=== PATIENT | male | born 1945 ===

== ENCOUNTER 2016-11-22 12:29 | Emergency (ER) | payer OTHER ==
[2016-11-22 12:33] VITALS: BP 158/85; PULSE 105; RESP 20; TEMP 98.3; O2SAT 98
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
--- NOTE | 2016-11-22 14:01 | RAD ---
HISTORY: r/o pneumothorax COMPARISON: No prior. TECHNIQUE: Chest PA and lateral FINDINGS: LUNGS: Suspect minor left basilar atelectasis and or scarring PLEURA: No significant pleural effusion identified. No pneumothorax apparent. CARDIOVASCULAR: Heart size normal. Partially calcified atherosclerotic plaque seen along the transverse portion of the thoracic aorta. OSSEOUS STRUCTURES: Minor multilevel degenerative spondylosis of the thoracic spine VISUALIZED UPPER ABDOMEN: Normal. OTHER FINDINGS: None. IMPRESSION: Suspect minor left basilar atelectasis or scarring
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
--- NOTE | 2016-11-22 15:15 | RAD ---
PROCEDURE: Right Hip Radiographs. HISTORY: hip pain COMPARISON: None. FINDINGS: BONES: No evidence of acute displaced fracture nor dislocation. The osseous structures appear intact. Both femoral heads appropriately located within the respective acetabula. JOINTS: Arthritic changes both hip joints. SOFT TISSUES: Normal. OTHER FINDINGS: Note made of mild degenerative spondylosis of the visualized lumbosacral spine IMPRESSION: No evidence of acute displaced fracture nor dislocation. Arthritic changes both hips
== END 2016-11-22 14:25 | disposition home or self-care (01) ==
LOC: H.ER 12:29
DX: S70.00XA Contusion of unspecified hip, initial encounter (principal); S20.229A Contusion of unspecified back wall of thorax, initial encounter; V03.10XA Pedestrian on foot injured in collision with car, pick-up truck or van in traffic accident, initial encounter; Y92.410 Unspecified street and highway as the place of occurrence of the external cause

== ENCOUNTER 2018-10-09 20:49 | Inpatient (IN) | payer OTHER ==
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
[2018-10-09 23:36] LABS: BASO % 0.5 % (0.0-2.0); EOS # 0.4 K/uL (0.0-0.7); HEMOGLOBIN 12.8 g/dL (12.0-18.0); LYMPH % 12.6 % (20.0-40.0); MEAN CELL VOLUME 104.1 fl (80.0-94.0); MEAN CORPUSCULAR HEMOGLOBIN 35.3 pg (27.0-31.0); MEAN CORPUSCULAR HGB CONC 33.9 g/dL (33.0-37.0); MEAN PLATELET VOLUME 8.7 fl (7.2-11.7); MONO # 0.4 K/uL (0.0-0.8); MONO % 4.9 % (0.0-10.0); NEUT # 6.4 K/uL (1.8-7.0); RBC 3.63 Mil/uL (4.40-5.90); RED CELL DISTRIBUTION WIDTH 13.1 % (11.5-14.5); WHITE BLOOD COUNT 8.3 K/uL (4.8-10.8)
[2018-10-09 23:40] LABS: PROTHROMBIN TIME 11.9 Seconds (9.8-13.1)
[2018-10-09 23:43] LABS: PARTIAL THROMBOPLASTIN TIME 27.4 Seconds (25.6-37.1)
[2018-10-09 23:45] LABS: ALB/GLOB RATIO 1.4 (1.0-2.1); ALBUMIN 4.3 g/dL (3.5-5.0); ALT/SGPT 28 U/L (21-72); AST/SGOT 22 U/L (17-59); BLOOD UREA NITROGEN 16 mg/dl (9-20); GFR NON-AFRICAN AMERICAN > 60
[2018-10-10] MEDS ORDERED: Iodixanol 320 MG/ML 100 ML BOTTLE IV ONE (00:08)
[2018-10-10] MEDS ORDERED: Sodium Chloride 0.9% 50 ML IV ONE (00:09)
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
[2018-10-10] MEDS: Sodium Chloride 0.9% 1,000 ML IV SCH ×3 (01:51→20:51)
[2018-10-10 02:36] LABS: SQUAMOUS EPITHIAL < 1 /hpf (0-5); URINE BILIRUBIN NEGATIVE (NEGATIVE); URINE BLOOD NEGATIVE (NEGATIVE); URINE CLARITY CLEAR (Clear); URINE COLOR YELLOW (YELLOW); URINE GLUCOSE (UA) NEG (NEGATIVE); URINE LEUKOCYTE ESTERASE NEG Leu/uL (Negative); URINE PROTEIN NEGATIVE (NEGATIVE)
--- NOTE | 2018-10-10 09:26 | CARD ---
APPROVED REPORT Date of service: 10/10/2018 EKG Measurement Heart [id number] <Conclusion> Normal sinus rhythm Normal ECG
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
[2018-10-10] MEDS ORDERED: Bupivacaine 0.5% Inj(30mL) ONE (11:01)
[2018-10-10] MEDS ORDERED: Midazolam 2 MG/2 ML VIAL ONE (11:04)
[2018-10-10] MEDS ORDERED: Succinylcholine Chloride 20 mg/ml Syr (5 ml) IV ONE (11:04)
[2018-10-10] MEDS ORDERED: Etomidate 20 mg/10ml Inj IV ONE (11:04)
[2018-10-10 11:06] LABS: HEMOGLOBIN 11.3 g/dL (12.0-18.0); MEAN CELL VOLUME 103.8 fl (80.0-94.0); MEAN CORPUSCULAR HEMOGLOBIN 35.4 pg (27.0-31.0); MEAN CORPUSCULAR HGB CONC 34.1 g/dL (33.0-37.0); RBC 3.2 Mil/uL (4.40-5.90); RED CELL DISTRIBUTION WIDTH 12.7 % (11.5-14.5); WHITE BLOOD COUNT 4.9 K/uL (4.8-10.8)
[2018-10-10] MEDS ORDERED: Iohexol 240 200 ML ONE (11:08)
[2018-10-10] MEDS ORDERED: Bupivacaine 0.5% 50 ML IJ ONE (11:20)
[2018-10-10] MEDS ORDERED: Esmolol 100 mg/10ml Inj IV ONE (11:22)
[2018-10-10] MEDS ORDERED: Lactated Ringer's 1,000 ML IV ONE (11:40)
[2018-10-10] MEDS ORDERED: HYDROmorphone 0.5 mg/0.5 ml ISec IVP PRN ×2 (11:41→12:05)
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
--- NOTE | 2018-10-10 13:11 | RAD ---
Date of service: 10/10/2018 PROCEDURE: CHEST RADIOGRAPH, 1 VIEW HISTORY: pre-op COMPARISON: 11/22/2016 FINDINGS: LUNGS: No interval consolidation. Possible bronchiectasis each upper lobe no change in appearance suggested. PLEURA: No pneumothorax or pleural fluid seen. CARDIOVASCULAR: There is presence of aortic atherosclerotic calcification on x-ray. Minimal [id number] No significant appearing pulmonary venous congestion. OSSEOUS STRUCTURES: Thoracic spondylosis. Bilateral shoulder arthrosis. Focal sclerotic lesion over left humeral head similar-appearing probable benign bone island. VISUALIZED UPPER ABDOMEN: Normal. OTHER FINDINGS: None. IMPRESSION: No acute cardiopulmonary pathology noted. No interval pathology noted.
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
--- NOTE | 2018-10-10 14:17 | RAD ---
Date of service: 10/10/2018 PROCEDURE: Intraoperative Fluoroscopy. HISTORY: RIGHT TIB/FIB FINDINGS: Fluoroscopic assistance was provided. Total fluoroscopic time (continuous mode) utilized during the procedure 6.1 seconds. Total exam DLP: 0.32 (mGy). Please refer to the operative report from DREW Patricio.
[2018-10-10] MEDS: oxyCODONE 5 mg Immediate Release Tab PO PRN ×2 (15:38→22:15)
[2018-10-11] MEDS: Sodium Chloride 0.9% 1,000 ML IV SCH ×4 (00:30→16:37)
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
[2018-10-11 07:43] LABS: HEMOGLOBIN 11.1 g/dL (12.0-18.0); MEAN CELL VOLUME 104.3 fl (80.0-94.0); MEAN CORPUSCULAR HEMOGLOBIN 35.4 pg (27.0-31.0); RBC 3.12 Mil/uL (4.40-5.90); RED CELL DISTRIBUTION WIDTH 12.8 % (11.5-14.5); WHITE BLOOD COUNT 5.5 K/uL (4.8-10.8)
[2018-10-11 08:05] LABS: BLOOD UREA NITROGEN 17 mg/dl (9-20); CALCIUM 8.2 mg/dL (8.4-10.2); GFR NON-AFRICAN AMERICAN > 60
[2018-10-11] MEDS ORDERED: ceFAZolin 1 GM in Sodium Chloride 0.9% 100 ML IVPB SCH (09:15)
[2018-10-11] MEDS: Ergocalciferol 50,000 Intl Units Cap PO SCH (11:56)
--- NOTE | 2018-10-11 13:08 | CP.PCM.PN ---
Subjective - Date & Time of Evaluation Date of Evaluation: 10/11/18 Time of Evaluation: 13:07 - Subjective Subjective: Patient complaining of knee pain, but says it is much improved after knee drainage yesterday. Denies numbness/tingling. Denies CP/SOB/dzzinss. Objective - Vital Signs/Intake and Output Vital Signs (last 24 hours): Temp Pulse Resp BP Pulse Ox 99.3 F 72 20 155/74 H 95 10/11/18 07:48 10/11/18 11:16 10/11/18 07:48 10/11/18 11:16 10/11/18 11:16 - Medications Medications: Current Medications Acetaminophen (Tylenol 325mg Tab) 650 mg PO Q6 PRN PRN Reason: Pain, Mild (1-3) Acetaminophen (Tylenol 325mg Tab) 650 mg PO Q6 PRN PRN Reason: Fever >100.4 F Last Admin: 10/10/18 18:29 Dose: 650 mg Calcium/Vitamin D (Oyster Shell Calcium/Vitamin D 500 Mg-200 Iu) 1 tab PO DAILY [facility] Docusate Sodium (Colace) 100 mg PO BID [facility] Last Admin: 10/11/18 08:29 Dose: 100 mg Enoxaparin Sodium (Lovenox) 40 mg SC DAILY [facility]; Protocol Ergocalciferol (Drisdol 50,000 Intl Units Cap) 1 cap PO Q7D [facility] Last Admin: 10/11/18 11:56 Dose: 1 cap Hydromorphone HCl (Dilaudid) 0.5 mg IVP Q4H PRN PRN Reason: Pain, severe (8-10) Sodium Chloride (Sodium Chloride 0.9%) 1,000 mls @ 125 mls/hr IV .Q8H [facility] Last Admin: 10/11/18 08:30 Dose: 125 mls/hr Cefazolin Sodium 1 gm/ Sodium (Chloride) 100 mls @ 100 mls/hr IVPB Q8 [facility]; Protocol Stop: 10/12/18 01:59 Last Admin: 10/11/18 11:52 Dose: 100 mls/hr Ketorolac Tromethamine (Toradol) 15 mg IVP Q6 PRN PRN Reason: Pain, severe (8-10) Last Admin: 10/11/18 05:59 Dose: 15 mg Oxycodone HCl (Oxycodone Immediate Release Tab) 5 mg PO Q4H PRN PRN Reason: Pain, moderate (4-7) Last Admin: 10/10/18 22:15 Dose: 5 mg - Labs Labs: 10/11/18 06:28 10/11/18 06:28 PT 11.9 Seconds (9.8-13.1) 10/09/18 23:33 INR 1.0 10/09/18 23:33 APTT 27.4 Seconds (25.6-37.1) 10/09/18 23:33 - Extremities Exam Additional comments: RLE: +ROM ankle/toes, limited motion due to pain but improving significantly. +DP/PT pulses, ant/lat compartments softer, calves soft NT neg homans, sensation intact Assessment and Plan (1) Closed fracture of right tibial plateau Assessment & Plan: POD#1 s/p closed reduction and aspiration of hemarthrosis right knee knee immob NWB PT/OT Will need ORIF when swelling improves Need designated CT of knee (CT angio not sufficient) plan for OR when swelling improves per DR. Mcguire, agrees with above Status: Acute (2) Closed fracture of fibula, proximal, right Status: Acute (3) Vitamin D deficiency Assessment & Plan: supp Status: Acute
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
[2018-10-11] MEDS: Calcium-Vit D 500 mg-200 Units Tab UD PO SCH (16:36)
--- NOTE | 2018-10-11 16:45 | CT ---
Date of service: 10/11/2018 PROCEDURE: CT right knee HISTORY: Right knee: right tibial plateau fracture COMPARISON: Not available TECHNIQUE: Computed tomography of the right knee was performed without intravenous contrast administration. 2.5 mm contiguous axial sections were acquired through the right knee. Sagittal and coronal images were reformatted from the axial scan. Total exam DLP: 393.54 mGy-cm. This CT exam was performed using 1 or more of the following dose reduction techniques: Automated exposure control, adjustment of the mA and/or kV according to patient size, and/or use of iterative reconstruction technique. FINDINGS: Markedly comminuted displaced pressure of the proximal right tibia. There is a transverse nondisplaced component. There is a mildly displaced vertical fracture through the lateral tibial condyle. The fractures extend to the articular surface. There are no clear intra-articular osseous fragments. There is a comminuted minimally displaced fracture of the proximal fibula. There is a small lipohemarthrosis.. There is trace gas noted along the medial aspect of the medial patellar articular facet. Uncertain significance. IMPRESSION: Comminuted displaced proximal tibial fracture, intra-articular. Comminuted minimally displaced proximal fibular fracture.
--- NOTE | 2018-10-12 05:51 | CP.PCM.PN ---
Subjective - Date & Time of Evaluation Date of Evaluation: 10/12/18 Time of Evaluation: 06:00 - Subjective Subjective: Patient states pain is controlled. Denies CP/SOB/dizziness. No new complaints. Objective - Vital Signs/Intake and Output Vital Signs (last 24 hours): Temp Pulse Resp BP Pulse Ox 98.9 F 79 18 155/79 H 96 10/12/18 04:12 10/12/18 04:12 10/12/18 04:12 10/12/18 04:12 10/12/18 04:12 - Medications Medications: Current Medications Acetaminophen (Tylenol 325mg Tab) 650 mg PO Q6 PRN PRN Reason: Pain, Mild (1-3) Acetaminophen (Tylenol 325mg Tab) 650 mg PO Q6 PRN PRN Reason: Fever >100.4 F Last Admin: 10/10/18 18:29 Dose: 650 mg Calcium/Vitamin D (Oyster Shell Calcium/Vitamin D 500 Mg-200 Iu) 1 tab PO DAILY [facility] Last Admin: 10/11/18 16:36 Dose: 1 tab Docusate Sodium (Colace) 100 mg PO BID [facility] Last Admin: 10/11/18 16:36 Dose: 100 mg Enoxaparin Sodium (Lovenox) 40 mg SC DAILY [facility]; Protocol Ergocalciferol (Drisdol 50,000 Intl Units Cap) 1 cap PO Q7D [facility] Last Admin: 10/11/18 11:56 Dose: 1 cap Hydromorphone HCl (Dilaudid) 0.5 mg IVP Q4H PRN PRN Reason: Pain, severe (8-10) Ketorolac Tromethamine (Toradol) 15 mg IVP Q6 PRN PRN Reason: Pain, severe (8-10) Last Admin: 10/11/18 20:34 Dose: 15 mg Oxycodone HCl (Oxycodone Immediate Release Tab) 5 mg PO Q4H PRN PRN Reason: Pain, moderate (4-7) Last Admin: 10/10/18 22:15 Dose: 5 mg - Labs Labs: 10/11/18 06:28 10/11/18 06:28 PT 11.9 Seconds (9.8-13.1) 10/09/18 23:33 INR 1.0 10/09/18 23:33 APTT 27.4 Seconds (25.6-37.1) 10/09/18 23:33 - Extremities Exam Additional comments: RLE: continued significant swelling to knee/right lower leg. No significant improvement at this time. +DP/PT pulses, calves soft NT neg homans but lower extremity swelling +ROM ankle/toes, improving sensation intact, compartments ant/lat still swollen but not tense Assessment and Plan (1) Closed fracture of right tibial plateau Assessment & Plan: s/p aspiration/CR plan for ORIF when swelling subsides, still too much swelling at this time to proceed with ORIF per Dr. Mcguire CT scan appreciated MRI right knee to evaluation for internal derangement of knee venous dopplers to r/o DVT will plan for OR Monday and reevaluate swelling over the weekend ice elevation NWB knee immob PT/OT VTE proph d/w Dr. Tillman, agrees with above Status: Acute (2) Closed fracture of fibula, proximal, right Status: Acute (3) Vitamin D deficiency Status: Acute Radiology Interpretation - Radiology Interpretation #3 Interpretation: atient Name / ID : MARIIA MONDRAGON / [id number] Exam Date : 10/11/2018 15:44:24 ( Approved ) Study Comment : Sex / Age : M / 73Y Creator : Moose Hanson MD Dictator : Moose Hanson MD Arc Welder Apprentice : Cylinder Inspector : Moose Hanson MD Approver2 : Report Date : 10/11/2018 16:39:58 My Comment : Date of service: 10/11/2018 PROCEDURE: CT right knee HISTORY: Right knee: right tibial plateau fracture COMPARISON: Not available TECHNIQUE: Computed tomography of the right knee was performed without intravenous contrast administration. 2.5 mm contiguous axial sections were acquired through the right knee. Sagittal and coronal images were reformatted from the axial scan. Total exam DLP: 393.54 mGy-cm. This CT exam was performed using 1 or more of the following dose reduction techniques: Automated exposure control, adjustment of the mA and/or kV according to patient size, and/or use of iterative reconstruction technique. FINDINGS: Markedly comminuted displaced pressure of the proximal right tibia. There is a transverse nondisplaced component. There is a mildly displaced vertical fracture through the lateral tibial condyle. The fractures extend to the articular surface. There are no clear intra-articular osseous fragments. There is a comminuted minimally displaced fracture of the proximal fibula. There is a small lipohemarthrosis.. There is trace gas noted along the medial aspect of the medial patellar articular facet. Uncertain significance.
[2018-10-12 06:17] LABS: BASO % 0.6 % (0.0-2.0); EOS # 0.8 K/uL (0.0-0.7); EOS % 14.9 % (0.0-4.0); HEMOGLOBIN 11.2 g/dL (12.0-18.0); LYMPH # 1.7 K/uL (1.0-4.3); LYMPH % 31.4 % (20.0-40.0); MEAN CORPUSCULAR HEMOGLOBIN 35.4 pg (27.0-31.0); MEAN PLATELET VOLUME 9.2 fl (7.2-11.7); MONO # 0.4 K/uL (0.0-0.8); MONO % 6.6 % (0.0-10.0); NEUT # 2.6 K/uL (1.8-7.0); NEUT % 46.5 % (50.0-75.0); NRBC % 0.1 % (0.0-0.0); RBC 3.17 Mil/uL (4.40-5.90); RED CELL DISTRIBUTION WIDTH 12.8 % (11.5-14.5); WHITE BLOOD COUNT 5.5 K/uL (4.8-10.8)
[2018-10-12 06:24] LABS: BLOOD UREA NITROGEN 17 mg/dl (9-20); CALCIUM 8.7 mg/dL (8.4-10.2); GFR NON-AFRICAN AMERICAN > 60
[2018-10-12] MEDS ORDERED: Enoxaparin 40 mg Syringe SC SCH (09:00)
[2018-10-12] MEDS: Calcium-Vit D 500 mg-200 Units Tab UD PO SCH (09:08)
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
[2018-10-12] MEDS: oxyCODONE 5 mg Immediate Release Tab PO PRN (16:00)
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
[2018-10-13 07:56] LABS: BASO % 0.9 % (0.0-2.0); EOS % 17.4 % (0.0-4.0); HEMOGLOBIN 11.4 g/dL (12.0-18.0); LYMPH # 1.5 K/uL (1.0-4.3); MEAN CELL VOLUME 103.8 fl (80.0-94.0); MEAN CORPUSCULAR HEMOGLOBIN 35.4 pg (27.0-31.0); MEAN CORPUSCULAR HGB CONC 34.1 g/dL (33.0-37.0); MEAN PLATELET VOLUME 9.4 fl (7.2-11.7); MONO # 0.4 K/uL (0.0-0.8); MONO % 7.4 % (0.0-10.0); NEUT # 2.5 K/uL (1.8-7.0); NEUT % 46.3 % (50.0-75.0); NRBC % 0.1 % (0.0-0.0); RBC 3.22 Mil/uL (4.40-5.90); RED CELL DISTRIBUTION WIDTH 12.7 % (11.5-14.5); WHITE BLOOD COUNT 5.5 K/uL (4.8-10.8)
[2018-10-13 08:14] LABS: BLOOD UREA NITROGEN 20 mg/dl (9-20); CALCIUM 8.7 mg/dL (8.4-10.2); GFR NON-AFRICAN AMERICAN > 60
[2018-10-13] MEDS ORDERED: Enoxaparin 40 mg Syringe SC ONE (08:45)
[2018-10-13] MEDS: Calcium-Vit D 500 mg-200 Units Tab UD PO SCH (12:31)
[2018-10-13] MEDS: oxyCODONE 5 mg Immediate Release Tab PO PRN ×3 (12:31→21:58)
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
--- NOTE | 2018-10-13 17:44 | US ---
Date of service: 10/12/2018 PROCEDURE: Bilateral lower extremity venous duplex Doppler. HISTORY: RLE sweling, r/o DVT COMPARISON: None available. TECHNIQUE: Bilateral common femoral, superficial femoral, popliteal and posterior tibial veins were evaluated. Flow was assessed with color Doppler, compressibility, assessment of phasic flow and augmentation response. FINDINGS: COMMON FEMORAL VEIN: Right CFV: Unremarkable. Left CFV: Unremarkable. SUPERFICIAL FEMORAL VEIN: Right SFV: Unremarkable. Left SFV: Unremarkable. POPLITEAL VEIN: Right Popliteal: Unremarkable. Left Popliteal: Unremarkable. POSTERIOR TIBIAL VEIN: Right PTV: Unremarkable. Left PTV: Unremarkable. OTHER FINDINGS: Popliteal cyst is seen at the right popliteal fossa 4.6 x 0.8 x 2.9 cm. IMPRESSION: No sonographic evidence of deep venous thrombosis bilateral lower extremities. Moderate the large popliteal cyst right popliteal fossa, 4.6 cm greatest dimension.
--- NOTE | 2018-10-13 18:25 | MRI ---
Date of service: 10/12/2018 PROCEDURE: MRI Right Knee HISTORY: Tibial plateau fracture, pain COMPARISON: Right knee radiographs 10/09/[address] 10/11/2018. TECHNIQUE: Multiecho multiplanar sequences were performed through the right knee. FINDINGS: ANTERIOR CRUCIATE LIGAMENT:: Partial tear or moderate sprain. POSTERIOR CRUCIATE LIGAMENT:: Partial tear or mild sprain. MEDIAL MENISCUS:: There is a small tear of the inferior articular surface posterior horn. LATERAL MENISCUS:: Limited degenerative intrameniscal signal change. MEDIAL COLLATERAL LIGAMENT:: Partial tear of the anterior fibers noted with mid and posterior fibers intact. LATERAL COLLATERAL LIGAMENT COMPLEX:: No intrinsic signal abnormality identified. QUADRICEPS TENDON:: Tendinosis signal changes noted distally. PATELLAR TENDON:: Partial tear of lateral fibers identified, best seen in the sagittal T1 and STIR acquisitions. CARTILAGE:: Moderate medial lateral femorotibial compartment chondromalacia with moderate to severe patellofemoral chondromalacia. JOINT FLUID:: [id number] medial lateral femorotibial compartment joint effusions with large suprapatellar effusion and hemarthrosis identified. OSSEOUS STRUCTURES:: Comminuted fracture through the lateral tibial plateau is appreciated with mild impaction. Lateral distraction of fracture fragments is minimally identified as well. In the complete fracture of the lateral femoral condyle is also identified with prominent local edema. No subluxation or dislocation identified. Patella is intact without fracture or contusion. Contusion noted at the posterior rim medial margins of the lateral femoral condyle. Complex impacted fracture of the head of the fibula also noted. OTHER FINDINGS: None. IMPRESSION: 1. Partial tear or moderate sprain ACL and PCL with partial tear MCL also apparent. 2. Partial tear lateral fibers of the patellar tendon identified. 3. Small tear posterior horn medial meniscus. 4. Comminuted impacted fracture lateral femoral condyle. Incomplete fracture lateral femoral condyle and small contusion posterior medial lateral femoral condyle. Comminuted fracture proximal fibula. 5. Joint/bursal effusions and hemarthrosis as above. 6. Additional lesser findings as discussed above. Preliminary report provided by Elier, 10/12/2018, 7:08 p.m..
[2018-10-14 07:18] LABS: HEMOGLOBIN 11.4 g/dL (12.0-18.0); MEAN CELL VOLUME 103.3 fl (80.0-94.0); MEAN CORPUSCULAR HEMOGLOBIN 35.8 pg (27.0-31.0); MEAN CORPUSCULAR HGB CONC 34.7 g/dL (33.0-37.0); RBC 3.2 Mil/uL (4.40-5.90); RED CELL DISTRIBUTION WIDTH 12.5 % (11.5-14.5); WHITE BLOOD COUNT 6.3 K/uL (4.8-10.8)
[2018-10-14 07:31] LABS: ALB/GLOB RATIO 1.2 (1.0-2.1); ALBUMIN 3.6 g/dL (3.5-5.0); ALT/SGPT 27 U/L (21-72); AST/SGOT 20 U/L (17-59); BLOOD UREA NITROGEN 19 mg/dl (9-20); CALCIUM 8.9 mg/dL (8.4-10.2); GFR NON-AFRICAN AMERICAN > 60
[2018-10-14] MEDS: oxyCODONE 5 mg Immediate Release Tab PO PRN ×2 (08:38→16:12)
[2018-10-14] MEDS: Calcium-Vit D 500 mg-200 Units Tab UD PO SCH (08:40)
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
[2018-10-15] MEDS: Calcium-Vit D 500 mg-200 Units Tab UD PO SCH (08:43)
[2018-10-15] MEDS ORDERED: Etomidate 20 mg/10ml Inj IV ONE (09:34)
[2018-10-15] MEDS ORDERED: Succinylcholine Chloride 20 mg/ml Syr (5 ml) IV ONE ×2 (09:35→12:19)
[2018-10-15] MEDS ORDERED: Absorbable Gelatin Sponge Size 12-7 ONE (09:41)
[2018-10-15] MEDS ORDERED: Bupivacaine 0.5% Inj(30mL) ONE (09:41)
[2018-10-15] MEDS ORDERED: Bacitracin Ointment 30 GM TUBE ONE (09:41)
[2018-10-15] MEDS ORDERED: MethylPREDNISolone Depo 40 mg/ml Inj ONE (09:41)
[2018-10-15] MEDS ORDERED: EPINEPHrine 1 mg/ml (1:1000) Inj ONE ×2 (09:42→15:07)
[2018-10-15] MEDS ORDERED: Ropivacaine 0.5% 30ML IV ONE (09:43)
[2018-10-15] MEDS ORDERED: Midazolam 2 MG/2 ML VIAL ONE ×2 (10:22→12:18)
[2018-10-15] MEDS ORDERED: Phenylephrine 10 mg/ml Inj ONE (10:26)
[2018-10-15] MEDS ORDERED: Neostigmine 1:1000 (1 mg/ml) Inj ONE (12:18)
[2018-10-15] MEDS ORDERED: Rocuronium 10 mg/ml (5 ml) ONE ×2 (12:18→13:26)
[2018-10-15] MEDS ORDERED: Propofol 10 mg/ml Inj (20 ML) ONE (12:18)
[2018-10-15] MEDS ORDERED: Lidocaine 4% (Laryng-O-Jet) Kit MM ONE (12:31)
[2018-10-15] MEDS ORDERED: Lidocaine 1% 5ml Abboject ONE (12:31)
[2018-10-15] MEDS ORDERED: Dextrose 5%/0.45% NS 500 ML IV ONE (12:43)
[2018-10-15] MEDS ORDERED: Lactated Ringer's 1,000 ML IV ONE (12:43)
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
[2018-10-15 13:10] LABS: FOLATE 9.4 ng/mL
[2018-10-15] MEDS ORDERED: ePHEDrine 50 mg/ml Inj ONE (13:10)
[2018-10-15] MEDS ORDERED: Sodium Chloride 0.9% 20 ML IV ONE (15:02)
--- NOTE | 2018-10-15 15:34 | PCM.SURG1 ---
Surgeon's Initial Post Op Note - Surgeon's Notes Surgeon: Christophe Mcguire MD [employer] Supervisor: Tracy Watson PA-C Type of Anesthesia: General Endo Anesthesia Administered By: Dr. Brar Pre-Operative Diagnosis: Right lateral tibial plateau fracture and proximal tibial fracture Operative Findings: Tourniquet: 57min@350mmHg Post-Operative Diagnosis: same Operation Performed: 1. ORIF right lateral tibial plateau and proximal tibial fracture. 2. Open peripheral lateral meniscal repair. 3. Arthroscopic partial medial and lateral meniscectomies. 4. Use and interpretation of fluoroscopic images Specimen/Specimens Removed: none Estimated Blood Loss: EBL {In ML}: 75 Blood Products Given: N/A Drains Used: No Drains Post-Op Condition: Fair Date of Surgery/Procedure: 10/15/18 Time of Surgery/Procedure: 15:34
[2018-10-15] MEDS ORDERED: Sodium Chloride 0.9% 1,000 ML IV SCH (15:45)
--- NOTE | 2018-10-15 16:04 | PCM.ANESB7 ---
Adductor Canal Block - Adductor Canal Block Date of Procedure: 10/15/18 Anesthiologist: Dr. Brar Pre-Procedure Diagnosis: S/P ORIF right tibial plateau fracture and right knee arhtroscopy Post-Procedure Diagnosis: S/P ORIF right tibial plateau fracture and right knee arhtroscopy Procedure Performed: Adductor Canal Block Right - Procedure Adductor Canal Block: The procedure was explained to the patient that it is for the post-operative pain management. Consent was obtained after a thorough discussion with the patient regarding the benefits and possible complications of local anesthetic adductor canal block of the femoral nerve. Standard monitors, as defined by the ASA, were applied to the patient. Time-out was held with the circulating nurse to confirm the appropriate block. After the surgery while still under general anesthesia, the patient in supine position with and the operative leg flexed slightly at the knee and externally rotated as needed, and was kept anatomically stable. The mid-thigh of the left lower extremity was exposed. The ultrasound transducer was then applied transversely along the medial aspect, about midway down the thigh and the femoral artery and vein were identified in appropriate relation with the sartorius muscle. At this time, the femoral nerve was visualized lateral to the femoral artery within the canal. After thorough identification, this area area was prepped with Chloroprep solution. At this point, a #20 gauge Stimuplex 4-inch needle was inserted in-plane in a [id number] orientation, and advanced toward the femoral nerve. Advancement was performed carefully under direct ultrasound visualization. After negative aspiration, 5cc of 0.25% Ropivacaine with 1:200,000 epinephrine was injected and this was followed with 15cc of 0.25% Ropivacaine with 1:200,000 epinephrine. Under ultrasound guidance the local anesthetics were observed spreading around the femoral nerve. The needle was removed intact and sterile dressing was applied. The patient had stable vital signs, was awaken from anesthesia and in no apparent distress. The patient tolerated the femoral nerve block well with stable vital signs and was transported to PACU
--- NOTE | 2018-10-15 16:13 | PCM.ANESB2 ---
Popliteal Nerve Block - Popliteal Nerve Block Date of Procedure: 10/15/18 Anesthesiologist: Dr. Brar Pre-Procedure Diagnosis: S/P ORIF right tibial plateau fracture and right knee arthroscopy Post-Procedure Diagnosis: S/P ORIF right tibial plateau fracture and right knee arthroscopy Procedure Performed: Popliteal Nerve Block Right - Procedure Popliteal Nerve Block: This procedure was explained to the patient that it is for post-operative pain management. Consent was obtained after a thorough discussion with the patient regarding the benefits and possible complications of local anesthetic block of the sciatic nerve at the popliteal level. The patient was brought to the operating room and standard monitors are applied. Time-out was held with the circulating nurse to confirm the correct surgery and the appropriate block. After the surgery while still under general anesthesia, patient's operative leg was gently raised and supported and the groove in between the biceps femoris and vastus lateralis muscles was carefully palpated. The skin approximately 8cm above the popliteal crease was then marked. The ultrasound transducer was then applied to the posterior thigh approximately 8cm above the popliteal crease in the transverse plane and the sciatic nerve before its division was visualized lateral to the popliteal artery and in between the bicep femoris and semimembranosus/semitendinosus muscles. After identification, the lateral portion of the thigh was prepped with Chloraprep solution. At this point, a # 20 gauge Stimuplex insulated 4 inch needle was inserted into pre-marked area and advanced in a perpendicular direction. The needle was inserted above the ultrasound transducer in-plane towards the sciatic nerve in a [id number] direction. Needle advancement was performed carefully under direct ultrasound visualization. Nerve stimulator was used and dorsiflexion of the left foot was elicited at a current of 0.3MA. After repeated negative aspiration, 5cc of 0.25% Ropivacaine with 1:200,000 epinephrine was injected and this was flowed with 15cc of 0.25% Ropivacaine with 1:200,000 epinephrine. Under ultrasound guidance the local anesthetics were observed surrounding sciatic nerve . The needle was removed intact and sterile dressing was applied. The patient tolerated the popliteal nerve block well with stable vital signs and was subsequently awaken from anesthesia. Patient was transported to PACU in stable condition.
--- NOTE | 2018-10-15 17:06 | RAD ---
Date of service: 10/15/2018 PROCEDURE: Right Knee Radiographs. HISTORY: s/p tibial plateau/prox tibia ORIF, pt in PACU COMPARISON: 10/09/2018. TECHNIQUE: 2 views obtained. FINDINGS: BONES: Status post open reduction and internal fixation of acute displaced comminuted intra-articular fracture in the proximal tibia. There is improved alignment of fracture fragments. No acute hardware complications. There is redemonstration of an acute comminuted mildly displaced fracture in the proximal fibula. JOINTS: There is mild tricompartmental degenerative osteoarthrosis with reduced joint spaces, marginal osteophytes and tibial spiking, worse in the medial compartment. JOINT EFFUSION: None. OTHER FINDINGS: Expected postoperative changes in the periarticular soft tissues. There are anterior skin liana. IMPRESSION: Status post open reduction and internal fixation of acute comminuted displaced intra-articular fracture in the proximal tibia. No acute hardware complications. Redemonstration of acute mildly displaced comminuted fracture in the proximal fibula.
--- NOTE | 2018-10-15 17:12 | RAD ---
Date of service: 10/15/2018 PROCEDURE: Fluoroscopy up to 1 hr. HISTORY: RIGHT ORIF TIBIAL PLATEAU COMPARISON: None TECHNIQUE: Standard protocol for this study/examination. FINDINGS: Total fluoroscopic time (continuous mode) utilized during the procedure 4.7 seconds. Total exam DLP: 0.19 (mGy). IMPRESSION: Submitted images from the current procedure: 5.0
[2018-10-15] MEDS: oxyCODONE 5 mg Immediate Release Tab PO PRN (20:53)
[2018-10-15] MEDS: ceFAZolin 2 GM in Sodium Chloride 0.9% 100 ML IVPB SCH (20:54)
[2018-10-16] MEDS: Lactated Ringer's 1,000 ML IV SCH ×4 (03:00→23:00)
[2018-10-16] MEDS: ceFAZolin 2 GM in Sodium Chloride 0.9% 100 ML IVPB SCH (05:35)
[2018-10-16 06:11] LABS: HEMOGLOBIN 10.5 g/dL (12.0-18.0); MEAN CELL VOLUME 102.4 fl (80.0-94.0); MEAN CORPUSCULAR HEMOGLOBIN 35.4 pg (27.0-31.0); MEAN CORPUSCULAR HGB CONC 34.6 g/dL (33.0-37.0); RBC 2.97 Mil/uL (4.40-5.90); RED CELL DISTRIBUTION WIDTH 12.4 % (11.5-14.5); WHITE BLOOD COUNT 6.1 K/uL (4.8-10.8)
[2018-10-16 06:16] LABS: BLOOD UREA NITROGEN 19 mg/dl (9-20); CALCIUM 8.5 mg/dL (8.4-10.2); GFR NON-AFRICAN AMERICAN > 60
--- NOTE | 2018-10-16 08:24 | CP.PCM.PN ---
Subjective - Date & Time of Evaluation Date of Evaluation: 10/16/18 Time of Evaluation: 07:30 - Subjective Subjective: Patient seen and examined at bedside comfortable. Pain well controlled due to nerve block. No acute events overnight. No other complaints. Denies CP/SOB/dizziness/fever. Objective - Vital Signs/Intake and Output Vital Signs (last 24 hours): Temp Pulse Resp BP Pulse Ox 99.1 F 81 19 134/68 96 10/16/18 07:38 10/16/18 07:38 10/16/18 07:38 10/16/18 07:38 10/16/18 07:38 - Medications Medications: Current Medications Acetaminophen (Tylenol 325mg Tab) 650 mg PO Q6 PRN PRN Reason: Pain, Mild (1-3) Acetaminophen (Tylenol 325mg Tab) 650 mg PO Q6 PRN PRN Reason: Fever >100.4 F Last Admin: 10/10/18 18:29 Dose: 650 mg Calcium/Vitamin D (Oyster Shell Calcium/Vitamin D 500 Mg-200 Iu) 1 tab PO DAILY [facility] Last Admin: 10/15/18 08:43 Dose: Not Given Cyanocobalamin (Vitamin B12 1000 Mcg/Ml Inj) 1,000 mcg IM DAILY [facility] Last Admin: 10/15/18 08:43 Dose: 1,000 mcg Docusate Sodium (Colace) 100 mg PO BID [facility] Last Admin: 10/15/18 08:41 Dose: Not Given Enoxaparin Sodium (Lovenox) 40 mg SC DAILY [facility]; Protocol Ergocalciferol (Drisdol 50,000 Intl Units Cap) 1 cap PO Q7D [facility] Last Admin: 10/11/18 11:56 Dose: 1 cap Hydromorphone HCl (Dilaudid) 0.5 mg IVP Q4 PRN PRN Reason: Pain, severe (8-10) Last Admin: 10/16/18 05:41 Dose: 0.5 mg Lactated Ringer's (Lactated Ringer's) 1,000 mls @ 100 mls/hr IV .Q10H [facility] Last Admin: 10/16/18 05:37 Dose: 100 mls/hr Metoprolol Tartrate (Lopressor) 12.5 mg PO Q12 [facility] Last Admin: 10/15/18 20:54 Dose: 12.5 mg Oxycodone HCl (Oxycodone Immediate Release Tab) 5 mg PO Q4H PRN PRN Reason: Pain, moderate (4-7) Last Admin: 10/15/18 20:53 Dose: 5 mg - Labs Labs: 10/16/18 05:20 10/16/18 05:20 PT 11.9 Seconds (9.8-13.1) 10/09/18 23:33 INR 1.0 10/09/18 23:33 APTT 27.4 Seconds (25.6-37.1) 10/09/18 23:33 - Extremities Exam Additional comments: RLE: Knee imm in place Dressings CDI sensation intact, slightly diminished due to block motor intact EHL/FHL, TA/G diminished due to block pedal pulse intact calves soft NT b/l Assessment and Plan (1) Closed fracture of right tibial plateau Assessment & Plan: POD#1 s/p ORIF right lateral tibial plateau and proximal tibial fracture -PT/OT NWB RLE with walking aid -strict knee imm at all times -DVT ppx -d/c planning -d/w Dr. Mcguire who agrees with above Status: Acute
--- NOTE | 2018-10-16 08:43 | CP.PCM.PN ---
Objective - Vital Signs/Intake and Output Vital Signs (last 24 hours): Temp Pulse Resp BP Pulse Ox 99.1 F 81 19 134/68 96 10/16/18 07:38 10/16/18 07:38 10/16/18 07:38 10/16/18 07:38 10/16/18 07:38 - Medications Medications: Current Medications Acetaminophen (Tylenol 325mg Tab) 650 mg PO Q6 PRN PRN Reason: Pain, Mild (1-3) Acetaminophen (Tylenol 325mg Tab) 650 mg PO Q6 PRN PRN Reason: Fever >100.4 F Last Admin: 10/10/18 18:29 Dose: 650 mg Calcium/Vitamin D (Oyster Shell Calcium/Vitamin D 500 Mg-200 Iu) 1 tab PO DAILY [facility] Last Admin: 10/15/18 08:43 Dose: Not Given Cyanocobalamin (Vitamin B12 1000 Mcg/Ml Inj) 1,000 mcg IM DAILY [facility] Last Admin: 10/15/18 08:43 Dose: 1,000 mcg Docusate Sodium (Colace) 100 mg PO BID [facility] Last Admin: 10/15/18 08:41 Dose: Not Given Enoxaparin Sodium (Lovenox) 40 mg SC DAILY [facility]; Protocol Ergocalciferol (Drisdol 50,000 Intl Units Cap) 1 cap PO Q7D [facility] Last Admin: 10/11/18 11:56 Dose: 1 cap Ferrous Sulfate (Feosol) 325 mg PO BID [facility] Folic Acid (Folic Acid) 1 mg PO DAILY [facility] Hydromorphone HCl (Dilaudid) 0.5 mg IVP Q4 PRN PRN Reason: Pain, severe (8-10) Last Admin: 10/16/18 05:41 Dose: 0.5 mg Lactated Ringer's (Lactated Ringer's) 1,000 mls @ 100 mls/hr IV .Q10H [facility] Last Admin: 10/16/18 05:37 Dose: 100 mls/hr Metoprolol Tartrate (Lopressor) 12.5 mg PO Q12 [facility] Last Admin: 10/15/18 20:54 Dose: 12.5 mg Oxycodone HCl (Oxycodone Immediate Release Tab) 5 mg PO Q4H PRN PRN Reason: Pain, moderate (4-7) Last Admin: 04/08/19 20:53 Dose: 5 mg - Labs Labs: 10/16/18 05:20 10/16/18 05:20 PT 11.9 Seconds (9.8-13.1) 10/09/18 23:33 INR 1.0 10/09/18 23:33 APTT 27.4 Seconds (25.6-37.1) 10/09/18 23:33
[2018-10-16] MEDS: Enoxaparin 40 mg Syringe SC SCH (08:50)
[2018-10-16] MEDS: Calcium-Vit D 500 mg-200 Units Tab UD PO SCH (08:51)
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
[2018-10-16] MEDS: oxyCODONE 5 mg Immediate Release Tab PO PRN (12:57)
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
[2018-10-17 07:17] LABS: BLOOD UREA NITROGEN 19 mg/dl (9-20); CALCIUM 9.1 mg/dL (8.4-10.2); GFR NON-AFRICAN AMERICAN > 60
[2018-10-17 07:20] LABS: HEMOGLOBIN 10.6 g/dL (12.0-18.0); MEAN CELL VOLUME 102.1 fl (80.0-94.0); MEAN CORPUSCULAR HEMOGLOBIN 35.3 pg (27.0-31.0); MEAN CORPUSCULAR HGB CONC 34.5 g/dL (33.0-37.0); RBC 3.02 Mil/uL (4.40-5.90); RED CELL DISTRIBUTION WIDTH 12.2 % (11.5-14.5); WHITE BLOOD COUNT 6.9 K/uL (4.8-10.8)
[2018-10-17] MEDS: Lactated Ringer's 1,000 ML IV SCH ×2 (08:44→18:40)
[2018-10-17] MEDS: Enoxaparin 40 mg Syringe SC SCH (08:44)
[2018-10-17] MEDS: Calcium-Vit D 500 mg-200 Units Tab UD PO SCH (08:45)
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
--- NOTE | 2018-10-17 14:43 | CP.PCM.PN ---
Subjective - Date & Time of Evaluation Date of Evaluation: 10/17/18 Time of Evaluation: 12:00 - Subjective Subjective: Patient seen and examined OOB to chair comfortable. Pain is well controlled. Tolerating PT well. No acute events overnight. No other complaints. Objective - Vital Signs/Intake and Output Vital Signs (last 24 hours): Temp Pulse Resp BP Pulse Ox 98.1 F 78 19 132/74 98 10/17/18 07:46 10/17/18 08:43 10/17/18 07:46 10/17/18 13:56 10/17/18 13:56 - Medications Medications: Current Medications Acetaminophen (Tylenol 325mg Tab) 650 mg PO Q6 PRN PRN Reason: Pain, Mild (1-3) Acetaminophen (Tylenol 325mg Tab) 650 mg PO Q6 PRN PRN Reason: Fever >100.4 F Last Admin: 10/17/18 00:12 Dose: 650 mg Calcium/Vitamin D (Oyster Shell Calcium/Vitamin D 500 Mg-200 Iu) 1 tab PO DAILY [facility] Last Admin: 10/17/18 08:45 Dose: 1 tab Cyanocobalamin (Vitamin B12 1000 Mcg/Ml Inj) 1,000 mcg IM DAILY [facility] Last Admin: 10/17/18 08:45 Dose: 1,000 mcg Docusate Sodium (Colace) 100 mg PO BID [facility] Last Admin: 10/17/18 08:43 Dose: 100 mg Enoxaparin Sodium (Lovenox) 40 mg SC DAILY [facility]; Protocol Last Admin: 10/17/18 08:44 Dose: 40 mg Ergocalciferol (Drisdol 50,000 Intl Units Cap) 1 cap PO Q7D [facility] Last Admin: 10/11/18 11:56 Dose: 1 cap Ferrous Sulfate (Feosol) 325 mg PO BID [facility] Last Admin: 10/17/18 08:43 Dose: 325 mg Folic Acid (Folic Acid) 1 mg PO DAILY [facility] Last Admin: 10/17/18 08:42 Dose: 1 mg Hydromorphone HCl (Dilaudid) 0.5 mg IVP Q4 PRN PRN Reason: Pain, severe (8-10) Last Admin: 10/16/18 16:15 Dose: 0.5 mg Lactated Ringer's (Lactated Ringer's) 1,000 mls @ 100 mls/hr IV .Q10H [facility] Last Admin: 10/17/18 08:44 Dose: Not Given Metoprolol Tartrate (Lopressor) 12.5 mg PO Q12 [facility] Last Admin: 10/17/18 08:43 Dose: 12.5 mg Oxycodone HCl (Oxycodone Immediate Release Tab) 5 mg PO Q4H PRN PRN Reason: Pain, moderate (4-7) Last Admin: 10/16/18 12:57 Dose: 5 mg - Labs Labs: 10/17/18 05:50 10/17/18 05:50 PT 11.9 Seconds (9.8-13.1) 10/09/18 23:33 INR 1.0 10/09/18 23:33 APTT 27.4 Seconds (25.6-37.1) 10/09/18 23:33 - Extremities Exam Additional comments: RLE: Knee imm in place Dressings CDI Incisions CDI with liana/nylon sutures sensation intact SP/DP/TN motor intact EHL/FHL, lack of ankle dorsiflexion (present preoperatively as per Dr. Mcguire) pedal pulse intact calves soft NT b/l Assessment and Plan (1) Closed fracture of right tibial plateau Assessment & Plan: POD#2 s/p ORIF right lateral tibial plateau and proximal tibial fracture -Dressings changed -CAM boot applied to be on at all times to promote ankle dorsiflexion -PT/OT NWB RLE -strict knee imm at all times -DVT ppx -d/c planning -d/w Dr. Mcguire who agrees with above Status: Acute
[2018-10-17] MEDS: oxyCODONE 5 mg Immediate Release Tab PO PRN (22:33)
[2018-10-18] MEDS: Lactated Ringer's 1,000 ML IV SCH (04:21)
[2018-10-18 06:46] LABS: BASO % 0.7 % (0.0-2.0); BLOOD UREA NITROGEN 19 mg/dl (9-20); CALCIUM 8.7 mg/dL (8.4-10.2); EOS # 0.3 K/uL (0.0-0.7); GFR NON-AFRICAN AMERICAN > 60; HEMOGLOBIN 10.5 g/dL (12.0-18.0); LYMPH # 1.2 K/uL (1.0-4.3); MEAN CELL VOLUME 102.3 fl (80.0-94.0); MEAN CORPUSCULAR HEMOGLOBIN 35.4 pg (27.0-31.0); MEAN CORPUSCULAR HGB CONC 34.6 g/dL (33.0-37.0); MEAN PLATELET VOLUME 9.2 fl (7.2-11.7); MONO # 0.6 K/uL (0.0-0.8); MONO % 9.4 % (0.0-10.0); NEUT # 4.6 K/uL (1.8-7.0); NEUT % 67.9 % (50.0-75.0); NRBC % 0.1 % (0.0-0.0); RBC 2.96 Mil/uL (4.40-5.90); RED CELL DISTRIBUTION WIDTH 12.2 % (11.5-14.5); WHITE BLOOD COUNT 6.7 K/uL (4.8-10.8)
[2018-10-18] MEDS: Enoxaparin 40 mg Syringe SC SCH (08:49)
[2018-10-18] MEDS: Ergocalciferol 50,000 Intl Units Cap PO SCH (08:50)
[2018-10-18] MEDS: Calcium-Vit D 500 mg-200 Units Tab UD PO SCH (08:51)
--- NOTE | 2018-10-18 09:09 | CP.PCM.PN ---
Subjective - Date & Time of Evaluation Date of Evaluation: 10/18/18 Time of Evaluation: 07:30 - Subjective Subjective: Patient seen and examined at bedside comfortable. Pain is well controlled. No acute changes overnight. No other complaints. Objective - Vital Signs/Intake and Output Vital Signs (last 24 hours): Temp Pulse Resp BP Pulse Ox 98.6 F 67 18 111/56 L 96 10/18/18 08:32 10/18/18 08:32 10/18/18 08:32 10/18/18 08:50 10/18/18 08:32 - Medications Medications: Current Medications Acetaminophen (Tylenol 325mg Tab) 650 mg PO Q6 PRN PRN Reason: Pain, Mild (1-3) Acetaminophen (Tylenol 325mg Tab) 650 mg PO Q6 PRN PRN Reason: Fever >100.4 F Last Admin: 10/17/18 00:12 Dose: 650 mg Calcium/Vitamin D (Oyster Shell Calcium/Vitamin D 500 Mg-200 Iu) 1 tab PO DAILY [facility] Last Admin: 10/18/18 08:51 Dose: 1 tab Cyanocobalamin (Vitamin B12 1000 Mcg/Ml Inj) 1,000 mcg IM DAILY [facility] Last Admin: 10/18/18 09:00 Dose: 1,000 mcg Docusate Sodium (Colace) 100 mg PO BID [facility] Last Admin: 10/18/18 08:51 Dose: 100 mg Enoxaparin Sodium (Lovenox) 40 mg SC DAILY [facility]; Protocol Last Admin: 10/18/18 08:49 Dose: 40 mg Ergocalciferol (Drisdol 50,000 Intl Units Cap) 1 cap PO Q7D [facility] Last Admin: 10/18/18 08:50 Dose: 1 cap Ferrous Sulfate (Feosol) 325 mg PO BID [facility] Last Admin: 10/18/18 08:50 Dose: 325 mg Folic Acid (Folic Acid) 1 mg PO DAILY [facility] Last Admin: 10/18/18 08:50 Dose: 1 mg Hydromorphone HCl (Dilaudid) 0.5 mg IVP Q4 PRN PRN Reason: Pain, severe (8-10) Last Admin: 10/17/18 16:30 Dose: 0.5 mg Lactated Ringer's (Lactated Ringer's) 1,000 mls @ 100 mls/hr IV .Q10H [facility] Last Admin: 10/17/18 18:40 Dose: Not Given Metoprolol Tartrate (Lopressor) 12.5 mg PO Q12 [facility] Last Admin: 10/18/18 08:50 Dose: Not Given Oxycodone HCl (Oxycodone Immediate Release Tab) 5 mg PO Q4H PRN PRN Reason: Pain, moderate (4-7) Last Admin: 10/17/18 22:33 Dose: 5 mg - Labs Labs: 10/18/18 05:35 10/18/18 05:35 PT 11.9 Seconds (9.8-13.1) 10/09/18 23:33 INR 1.0 10/09/18 23:33 APTT 27.4 Seconds (25.6-37.1) 10/09/18 23:33 - Extremities Exam Additional comments: RLE: Knee imm in place, CAM boot in place Dressings CDI Incisions CDI with liana/nylon sutures sensation intact SP/DP/TN motor intact EHL/FHL, lack of ankle dorsiflexion (present preoperatively as per Dr. Mcguire) pedal pulse intact calves soft NT b/l Assessment and Plan (1) Closed fracture of right tibial plateau Assessment & Plan: POD#3 s/p ORIF right lateral tibial plateau and proximal tibial fracture -PT/OT NWB RLE -strict knee imm at all times -DVT ppx -orthopedically stable for discharge -d/w Dr. Mcguire who agrees with above Status: Acute
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
[2018-10-18] MEDS: oxyCODONE 5 mg Immediate Release Tab PO PRN (21:43)
[2018-10-19] MEDS: Lactated Ringer's 1,000 ML IV SCH ×3 (00:21→20:39)
[2018-10-19 06:26] LABS: BASO # 0.1 K/uL (0.0-0.2); BASO % 1.1 % (0.0-2.0); EOS # 0.3 K/uL (0.0-0.7); EOS % 4.6 % (0.0-4.0); HEMOGLOBIN 10.3 g/dL (12.0-18.0); LYMPH # 1.6 K/uL (1.0-4.3); LYMPH % 26.7 % (20.0-40.0); MEAN CELL VOLUME 102.6 fl (80.0-94.0); MEAN CORPUSCULAR HEMOGLOBIN 34.7 pg (27.0-31.0); MEAN CORPUSCULAR HGB CONC 33.9 g/dL (33.0-37.0); MEAN PLATELET VOLUME 9.3 fl (7.2-11.7); MONO # 0.6 K/uL (0.0-0.8); MONO % 9.7 % (0.0-10.0); NEUT # 3.4 K/uL (1.8-7.0); NEUT % 57.9 % (50.0-75.0); RBC 2.96 Mil/uL (4.40-5.90); RED CELL DISTRIBUTION WIDTH 12.3 % (11.5-14.5); WHITE BLOOD COUNT 5.9 K/uL (4.8-10.8)
[2018-10-19 06:32] LABS: BLOOD UREA NITROGEN 20 mg/dl (9-20); CALCIUM 9.1 mg/dL (8.4-10.2); GFR NON-AFRICAN AMERICAN > 60
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
[2018-10-19] MEDS: Enoxaparin 40 mg Syringe SC SCH (08:58)
[2018-10-19] MEDS: Calcium-Vit D 500 mg-200 Units Tab UD PO SCH (08:58)
--- NOTE | 2018-10-19 10:39 | CP.PCM.PN ---
Subjective - Date & Time of Evaluation Date of Evaluation: 10/19/18 Time of Evaluation: 10:37 - Subjective Subjective: Patient states the pain is better in his knee, still has pain in lower leg also. Denies numbness/tingling. Objective - Vital Signs/Intake and Output Vital Signs (last 24 hours): Temp Pulse Resp BP Pulse Ox 98.5 F 76 19 118/68 97 10/19/18 07:59 10/19/18 08:57 10/19/18 07:59 10/19/18 08:57 10/19/18 07:59 - Medications Medications: Current Medications Acetaminophen (Tylenol 325mg Tab) 650 mg PO Q6 PRN PRN Reason: Pain, Mild (1-3) Acetaminophen (Tylenol 325mg Tab) 650 mg PO Q6 PRN PRN Reason: Fever >100.4 F Last Admin: 10/17/18 00:12 Dose: 650 mg Calcium/Vitamin D (Oyster Shell Calcium/Vitamin D 500 Mg-200 Iu) 1 tab PO DAILY [facility] Last Admin: 10/19/18 08:58 Dose: 1 tab Cyanocobalamin (Vitamin B12 1000 Mcg/Ml Inj) 1,000 mcg IM DAILY [facility] Last Admin: 10/19/18 09:07 Dose: 1,000 mcg Docusate Sodium (Colace) 100 mg PO BID [facility] Last Admin: 10/19/18 08:58 Dose: 100 mg Enoxaparin Sodium (Lovenox) 40 mg SC DAILY [facility]; Protocol Last Admin: 10/19/18 08:58 Dose: 40 mg Ergocalciferol (Drisdol 50,000 Intl Units Cap) 1 cap PO Q7D [facility] Last Admin: 10/18/18 08:50 Dose: 1 cap Ferrous Sulfate (Feosol) 325 mg PO BID [facility] Last Admin: 10/19/18 08:58 Dose: 325 mg Folic Acid (Folic Acid) 1 mg PO DAILY [facility] Last Admin: 10/19/18 08:58 Dose: 1 mg Lactated Ringer's (Lactated Ringer's) 1,000 mls @ 100 mls/hr IV .Q10H [facility] Last Admin: 10/19/18 00:21 Dose: Not Given Metoprolol Tartrate (Lopressor) 12.5 mg PO Q12 [facility] Last Admin: 10/19/18 08:57 Dose: 12.5 mg Oxycodone HCl (Oxycodone Immediate Release Tab) 5 mg PO Q4H PRN PRN Reason: Pain, moderate (4-7) Last Admin: 10/18/18 21:43 Dose: 5 mg - Labs Labs: 10/19/18 05:30 10/19/18 05:30 PT 11.9 Seconds (9.8-13.1) 10/09/18 23:33 INR 1.0 10/09/18 23:33 APTT 27.4 Seconds (25.6-37.1) 10/09/18 23:33 - Extremities Exam Additional comments: Right knee: dressing changed. Incision intact, dry, no erythema. Swelling improving. Admits to sensation to med/lat foot, 1st dorsal webspace. +DP/PT pulses, +PF, toe flexion. No active toe extension or DF Assessment and Plan (1) Closed fracture of right tibial plateau Assessment & Plan: cont PT/OT AFO ordered sensation is intact to RLE orthopedically stable elevate leg d/w DR. Mcguire, agrees with above Status: Acute (2) Closed fracture of fibula, proximal, right Status: Acute (3) Vitamin D deficiency Status: Acute
[2018-10-19] MEDS: oxyCODONE 5 mg Immediate Release Tab PO PRN (13:28)
[2018-10-20] MEDS: oxyCODONE 5 mg Immediate Release Tab PO PRN ×2 (00:28→20:27)
[2018-10-20 06:44] LABS: BASO % 0.7 % (0.0-2.0); EOS # 0.4 K/uL (0.0-0.7); EOS % 5.9 % (0.0-4.0); HEMOGLOBIN 9.9 g/dL (12.0-18.0); LYMPH # 1.6 K/uL (1.0-4.3); LYMPH % 25.8 % (20.0-40.0); MEAN CELL VOLUME 102.5 fl (80.0-94.0); MEAN CORPUSCULAR HEMOGLOBIN 35.2 pg (27.0-31.0); MEAN CORPUSCULAR HGB CONC 34.3 g/dL (33.0-37.0); MEAN PLATELET VOLUME 9.2 fl (7.2-11.7); MONO # 0.6 K/uL (0.0-0.8); MONO % 9.3 % (0.0-10.0); NEUT # 3.6 K/uL (1.8-7.0); NEUT % 58.3 % (50.0-75.0); NRBC % 0.1 % (0.0-0.0); RBC 2.83 Mil/uL (4.40-5.90); RED CELL DISTRIBUTION WIDTH 12.2 % (11.5-14.5); WHITE BLOOD COUNT 6.2 K/uL (4.8-10.8)
[2018-10-20] MEDS: Lactated Ringer's 1,000 ML IV SCH (06:47)
[2018-10-20] MEDS: Enoxaparin 40 mg Syringe SC SCH (08:52)
[2018-10-20] MEDS: Calcium-Vit D 500 mg-200 Units Tab UD PO SCH (08:53)
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
[2018-10-21 07:04] LABS: BASO # 0.1 K/uL (0.0-0.2); BASO % 0.9 % (0.0-2.0); EOS # 0.5 K/uL (0.0-0.7); EOS % 7.4 % (0.0-4.0); HEMOGLOBIN 10.3 g/dL (12.0-18.0); LYMPH # 1.6 K/uL (1.0-4.3); MEAN CELL VOLUME 101.9 fl (80.0-94.0); MEAN CORPUSCULAR HEMOGLOBIN 34.8 pg (27.0-31.0); MEAN CORPUSCULAR HGB CONC 34.2 g/dL (33.0-37.0); MEAN PLATELET VOLUME 8.2 fl (7.2-11.7); MONO # 0.5 K/uL (0.0-0.8); NEUT # 4.1 K/uL (1.8-7.0); NEUT % 60.7 % (50.0-75.0); NRBC % 0.1 % (0.0-0.0); RBC 2.96 Mil/uL (4.40-5.90); RED CELL DISTRIBUTION WIDTH 12.5 % (11.5-14.5); WHITE BLOOD COUNT 6.7 K/uL (4.8-10.8)
[2018-10-21 07:34] LABS: BLOOD UREA NITROGEN 23 mg/dl (9-20); CALCIUM 9.1 mg/dL (8.4-10.2); GFR NON-AFRICAN AMERICAN > 60
[2018-10-21] MEDS: Enoxaparin 40 mg Syringe SC SCH (08:15)
[2018-10-21] MEDS: Calcium-Vit D 500 mg-200 Units Tab UD PO SCH (08:16)
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
--- NOTE | 2018-10-22 08:42 | CP.PCM.PN ---
Subjective - Date & Time of Evaluation Date of Evaluation: 10/22/18 Time of Evaluation: 08:42 - Subjective Subjective: Patient states pain is controlled. Denies numbness/tingling. Objective - Vital Signs/Intake and Output Vital Signs (last 24 hours): Temp Pulse Resp BP Pulse Ox 97.7 F 69 18 112/66 96 10/22/18 00:23 10/22/18 00:23 10/22/18 00:23 10/22/18 00:23 10/22/18 00:23 - Medications Medications: Current Medications Acetaminophen (Tylenol 325mg Tab) 650 mg PO Q6 PRN PRN Reason: Pain, Mild (1-3) Last Admin: 10/21/18 13:03 Dose: 650 mg Acetaminophen (Tylenol 325mg Tab) 650 mg PO Q6 PRN PRN Reason: Fever >100.4 F Last Admin: 10/17/18 00:12 Dose: 650 mg Calcium/Vitamin D (Oyster Shell Calcium/Vitamin D 500 Mg-200 Iu) 1 tab PO DAILY [facility] Last Admin: 10/21/18 08:16 Dose: 1 tab Cyanocobalamin (Vitamin B12 1000 Mcg/Ml Inj) 1,000 mcg IM DAILY [facility] Last Admin: 10/21/18 13:02 Dose: 1,000 mcg Docusate Sodium (Colace) 100 mg PO BID [facility] Last Admin: 10/21/18 16:18 Dose: 100 mg Enoxaparin Sodium (Lovenox) 40 mg SC DAILY [facility]; Protocol Last Admin: 10/21/18 08:15 Dose: 40 mg Ergocalciferol (Drisdol 50,000 Intl Units Cap) 1 cap PO Q7D [facility] Last Admin: 10/18/18 08:50 Dose: 1 cap Ferrous Sulfate (Feosol) 325 mg PO BID [facility] Last Admin: 10/21/18 16:18 Dose: 325 mg Folic Acid (Folic Acid) 1 mg PO DAILY [facility] Last Admin: 10/21/18 08:09 Dose: 1 mg Metoprolol Tartrate (Lopressor) 12.5 mg PO Q12 [facility] Last Admin: 10/21/18 20:41 Dose: 12.5 mg Oxycodone HCl (Oxycodone Immediate Release Tab) 5 mg PO Q4H PRN PRN Reason: Pain, moderate (4-7) Last Admin: 10/20/18 20:27 Dose: 5 mg - Labs Labs: 10/21/18 05:40 10/21/18 05:40 PT 11.9 Seconds (9.8-13.1) 10/09/18 23:33 INR 1.0 10/09/18 23:33 APTT 27.4 Seconds (25.6-37.1) 10/09/18 23:33 - Extremities Exam Additional comments: Right knee: dressing changed. Incision intact, dry, no erythema. Swelling continues to improve. Admits to sensation to med/lat foot, 1st dorsal webspace. +DP/PT pulses, +PF, toe flexion. No active toe extension or DF. Calves soft NT neg homans e Assessment and Plan (1) Closed fracture of right tibial plateau Assessment & Plan: cont PT/OT AFO ordered sensation is intact to RLE orthopedically stable elevate leg d/w DR. Mcguire, agrees with above Status: Acute (2) Closed fracture of fibula, proximal, right Status: Acute (3) Vitamin D deficiency Status: Acute
[2018-10-22] MEDS: Calcium-Vit D 500 mg-200 Units Tab UD PO SCH (09:28)
[2018-10-22] MEDS: Enoxaparin 40 mg Syringe SC SCH (09:31)
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
[2018-10-23] MEDS: Calcium-Vit D 500 mg-200 Units Tab UD PO SCH (08:30)
[2018-10-23] MEDS: Enoxaparin 40 mg Syringe SC SCH (08:30)
--- NOTE | 2018-10-23 09:39 | CP.PCM.PN ---
Subjective - Date & Time of Evaluation Date of Evaluation: 10/23/18 Time of Evaluation: 07:30 - Subjective Subjective: Patient seen and examined at bedside. Pain well controlled. Offers no other complaints. Objective - Vital Signs/Intake and Output Vital Signs (last 24 hours): Temp Pulse Resp BP Pulse Ox 98.1 F 73 18 136/69 99 10/23/18 08:33 10/23/18 08:38 10/23/18 08:33 10/23/18 08:38 10/23/18 08:33 - Medications Medications: Current Medications Acetaminophen (Tylenol 325mg Tab) 650 mg PO Q6 PRN PRN Reason: Pain, Mild (1-3) Last Admin: 10/21/18 13:03 Dose: 650 mg Acetaminophen (Tylenol 325mg Tab) 650 mg PO Q6 PRN PRN Reason: Fever >100.4 F Last Admin: 10/17/18 00:12 Dose: 650 mg Calcium/Vitamin D (Oyster Shell Calcium/Vitamin D 500 Mg-200 Iu) [address] [facility] Last Admin: 10/23/18 08:30 Dose: 1 tab Cyanocobalamin (Vitamin B12 1000 Mcg/Ml Inj) 1,[address] [facility] Last Admin: 10/23/18 08:42 Dose: 1,000 mcg Docusate Sodium (Colace) [address] [facility] Last Admin: 10/23/18 08:30 Dose: 100 mg Enoxaparin Sodium (Lovenox) [address] [facility]; Protocol Last Admin: 10/23/18 08:30 Dose: 40 mg Ergocalciferol (Drisdol 50,000 Intl Units Cap) [address] [facility] Last Admin: 10/18/18 08:50 Dose: 1 cap Ferrous Sulfate (Feosol) [address] [facility] Last Admin: 10/23/18 08:30 Dose: 325 mg Folic Acid (Folic Acid) [address] [facility] Last Admin: 10/23/18 08:30 Dose: 1 mg Metoprolol Tartrate (Lopressor) 12.[address] [facility] Last Admin: 10/23/18 08:38 Dose: 12.5 mg Oxycodone HCl (Oxycodone Immediate Release Tab) 5 mg PO Q4H PRN PRN Reason: Pain, moderate (4-7) Last Admin: 10/20/18 20:27 Dose: 5 mg - Labs Labs: 10/21/18 05:40 10/21/18 05:40 PT 11.9 Seconds (9.8-13.1) 10/09/18 23:33 INR 1.0 10/09/18 23:33 APTT 27.4 Seconds (25.6-37.1) 10/09/18 23:33 - Extremities Exam Additional comments: RLE: Knee imm in place Dressings CDI sensation intact SP/DP/TN motor intact EHL/FHL, lack of ankle dorsiflexion (present preoperatively as per Dr. Mcguire) pedal pulse intact calves soft NT b/l Assessment and Plan (1) Closed fracture of right tibial plateau Assessment & Plan: POD#8 s/p ORIF right lateral tibial plateau and proximal tibial fracture -PT/OT NWB RLE -strict knee imm at all times -DVT ppx -awaiting AFO brace to promote dorsiflexion for post-traumatic foot drop -orthopedically stable for discharge -d/w Dr. Mcguire who agrees with above Status: Acute
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
[2018-10-24] MEDS: Enoxaparin 40 mg Syringe SC SCH (10:05)
[2018-10-24] MEDS: Calcium-Vit D 500 mg-200 Units Tab UD PO SCH (10:07)
--- NOTE | 2018-10-24 14:00 | CP.PCM.PN ---
Subjective - Date & Time of Evaluation Date of Evaluation: 10/24/18 Time of Evaluation: 11:00 - Subjective Subjective: Patient seen and examined OOB to chair comfortable. Minimal pain at this time, moderate pain overnight. Tolerated PT well this AM, using AFO brace. No other complaints. Objective - Vital Signs/Intake and Output Vital Signs (last 24 hours): Temp Pulse Resp BP Pulse Ox 97.9 F 74 20 131/71 98 10/24/18 08:13 10/24/18 10:06 10/24/18 08:13 10/24/18 10:06 10/24/18 08:13 - Medications Medications: Current Medications Acetaminophen (Tylenol 325mg Tab) 650 mg PO Q6 PRN PRN Reason: Pain, Mild (1-3) Last Admin: 10/21/18 13:03 Dose: 650 mg Acetaminophen (Tylenol 325mg Tab) 650 mg PO Q6 PRN PRN Reason: Fever >100.4 F Last Admin: 10/17/18 00:12 Dose: 650 mg Calcium/Vitamin D (Oyster Shell Calcium/Vitamin D 500 Mg-200 Iu) 1 tab PO DAILY [facility] Last Admin: 10/24/18 10:07 Dose: 1 tab Cyanocobalamin (Vitamin B12 1000 Mcg/Ml Inj) 1,000 mcg IM DAILY [facility] Last Admin: 10/24/18 10:13 Dose: 1,000 mcg Docusate Sodium (Colace) 100 mg PO BID [facility] Last Admin: 10/24/18 10:06 Dose: 100 mg Enoxaparin Sodium (Lovenox) 40 mg SC DAILY [facility]; Protocol Last Admin: 10/24/18 10:05 Dose: 40 mg Ergocalciferol (Drisdol 50,000 Intl Units Cap) 1 cap PO Q7D [facility] Last Admin: 10/18/18 08:50 Dose: 1 cap Ferrous Sulfate (Feosol) 325 mg PO BID [facility] Last Admin: 10/24/18 10:06 Dose: 325 mg Folic Acid (Folic Acid) 1 mg PO DAILY [facility] Last Admin: 10/24/18 10:06 Dose: 1 mg Metoprolol Tartrate (Lopressor) 12.5 mg PO Q12 [facility] Last Admin: 10/24/18 10:06 Dose: 12.5 mg Oxycodone HCl (Oxycodone Immediate Release Tab) 5 mg PO Q4H PRN PRN Reason: Pain, moderate (4-7) Last Admin: 10/20/18 20:27 Dose: 5 mg - Labs Labs: 10/21/18 05:40 10/21/18 05:40 PT 11.9 Seconds (9.8-13.1) 10/09/18 23:33 INR 1.0 10/09/18 23:33 APTT 27.4 Seconds (25.6-37.1) 10/09/18 23:33 - Extremities Exam Additional comments: RLE: Knee imm in place Dressings CDI sensation intact SP/DP/TN motor intact EHL/FHL, lack of ankle dorsiflexion (present preoperatively as per Dr. Mcguire) pedal pulse intact calves soft NT b/l Assessment and Plan (1) Closed fracture of right tibial plateau Assessment & Plan: POD#9 s/p ORIF right lateral tibial plateau and proximal tibial fracture -PT/OT NWB RLE -strict knee imm at all times -DVT ppx -AFO brace on at all times to promote dorsiflexion for post-traumatic foot drop, monitor skin for breakdown -orthopedically stable for discharge -d/w Dr. Mcguire who agrees with above Status: Acute
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
[2018-10-25] MEDS: Enoxaparin 40 mg Syringe SC SCH (08:32)
[2018-10-25] MEDS: Ergocalciferol 50,000 Intl Units Cap PO SCH (08:34)
[2018-10-25] MEDS: Calcium-Vit D 500 mg-200 Units Tab UD PO SCH (08:36)
--- NOTE | 2018-10-25 09:16 | CP.PCM.PN ---
Subjective - Date & Time of Evaluation Date of Evaluation: 10/25/18 Time of Evaluation: 08:00 - Subjective Subjective: Patient seen and examined at bedside comfortable. Offers no complaints. Tolerating PT well. Objective - Vital Signs/Intake and Output Vital Signs (last 24 hours): Temp Pulse Resp BP Pulse Ox 97.7 F 71 19 118/67 98 10/25/18 07:36 10/25/18 08:35 10/25/18 07:36 10/25/18 08:35 10/25/18 07:36 - Medications Medications: Current Medications Acetaminophen (Tylenol 325mg Tab) 650 mg PO Q6 PRN PRN Reason: Pain, Mild (1-3) Last Admin: 10/21/18 13:03 Dose: 650 mg Acetaminophen (Tylenol 325mg Tab) 650 mg PO Q6 PRN PRN Reason: Fever >100.4 F Last Admin: 10/17/18 00:12 Dose: 650 mg Calcium/Vitamin D (Oyster Shell Calcium/Vitamin D 500 Mg-200 Iu) 1 tab PO DAILY [facility] Last Admin: 10/25/18 08:36 Dose: 1 tab Cyanocobalamin (Vitamin B12 1000 Mcg/Ml Inj) 1,000 mcg IM DAILY [facility] Last Admin: 10/24/18 10:13 Dose: 1,000 mcg Docusate Sodium (Colace) 100 mg PO BID [facility] Last Admin: 10/25/18 08:34 Dose: 100 mg Enoxaparin Sodium (Lovenox) 40 mg SC DAILY [facility]; Protocol Last Admin: 10/25/18 08:32 Dose: 40 mg Ergocalciferol (Drisdol 50,000 Intl Units Cap) 1 cap PO Q7D [facility] Last Admin: 10/25/18 08:34 Dose: 1 cap Ferrous Sulfate (Feosol) 325 mg PO BID [facility] Last Admin: 10/25/18 08:35 Dose: 325 mg Folic Acid (Folic Acid) 1 mg PO DAILY [facility] Last Admin: 10/25/18 08:35 Dose: 1 mg Metoprolol Tartrate (Lopressor) 12.5 mg PO Q12 [facility] Last Admin: 10/25/18 08:35 Dose: 12.5 mg Oxycodone HCl (Oxycodone Immediate Release Tab) 5 mg PO Q4H PRN PRN Reason: Pain, moderate (4-7) Last Admin: 10/20/18 20:27 Dose: 5 mg - Labs Labs: 10/21/18 05:40 10/21/18 05:40 PT 11.9 Seconds (9.8-13.1) 10/09/18 23:33 INR 1.0 10/09/18 23:33 APTT 27.4 Seconds (25.6-37.1) 10/09/18 23:33 - Extremities Exam Additional comments: RLE: Knee imm in place Dressings CDI sensation intact SP/DP/TN motor intact EHL/FHL, lack of ankle dorsiflexion (present preoperatively as per Dr. Mcguire) pedal pulse intact calves soft NT b/l Assessment and Plan (1) Closed fracture of right tibial plateau Assessment & Plan: POD#10 s/p ORIF right lateral tibial plateau and proximal tibial fracture -PT/OT NWB RLE -DVT ppx -AFO brace, monitor skin for breakdown -orthopedically stable for discharge -d/w Dr. Mcguire who agrees with above Status: Acute
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
[2018-10-26] MEDS: Enoxaparin 40 mg Syringe SC SCH (08:23)
[2018-10-26] MEDS: Calcium-Vit D 500 mg-200 Units Tab UD PO SCH (08:24)
--- NOTE | 2018-10-26 08:38 | CP.PCM.PN ---
Subjective - Date & Time of Evaluation Date of Evaluation: 10/26/18 Time of Evaluation: 08:37 - Subjective Subjective: Patient complains of knee pain. Denies Cp/SOB/dizziness Objective - Vital Signs/Intake and Output Vital Signs (last 24 hours): Temp Pulse Resp BP Pulse Ox 98.1 F 68 19 113/66 97 10/26/18 07:37 10/26/18 08:23 10/26/18 07:37 10/26/18 08:23 10/26/18 07:37 - Medications Medications: Current Medications Acetaminophen (Tylenol 325mg Tab) 650 mg PO Q6 PRN PRN Reason: Pain, Mild (1-3) Last Admin: 10/21/18 13:03 Dose: 650 mg Acetaminophen (Tylenol 325mg Tab) 650 mg PO Q6 PRN PRN Reason: Fever >100.4 F Last Admin: 10/17/18 00:12 Dose: 650 mg Calcium/Vitamin D (Oyster Shell Calcium/Vitamin D 500 Mg-200 Iu) 1 tab PO DAILY [facility] Last Admin: 10/26/18 08:24 Dose: 1 tab Cyanocobalamin (Vitamin B12 1000 Mcg/Ml Inj) 1,000 mcg IM DAILY [facility] Last Admin: 10/26/18 08:24 Dose: 1,000 mcg Docusate Sodium (Colace) 100 mg PO BID [facility] Last Admin: 10/26/18 08:24 Dose: 100 mg Enoxaparin Sodium (Lovenox) 40 mg SC DAILY [facility]; Protocol Last Admin: 10/26/18 08:23 Dose: 40 mg Ergocalciferol (Drisdol 50,000 Intl Units Cap) 1 cap PO Q7D [facility] Last Admin: 10/25/18 08:34 Dose: 1 cap Ferrous Sulfate (Feosol) 325 mg PO BID [facility] Last Admin: 10/26/18 08:23 Dose: 325 mg Folic Acid (Folic Acid) 1 mg PO DAILY [facility] Last Admin: 10/26/18 08:25 Dose: 1 mg Metoprolol Tartrate (Lopressor) 12.5 mg PO Q12 [facility] Last Admin: 10/26/18 08:23 Dose: 12.5 mg Oxycodone HCl (Oxycodone Immediate Release Tab) 5 mg PO Q4H PRN PRN Reason: Pain, moderate (4-7) Last Admin: 10/20/18 20:27 Dose: 5 mg - Labs Labs: 10/21/18 05:40 10/21/18 05:40 PT 11.9 Seconds (9.8-13.1) 10/09/18 23:33 INR 1.0 10/09/18 23:33 APTT 27.4 Seconds (25.6-37.1) 10/09/18 23:33 - Extremities Exam Additional comments: Right knee: Incisions intact, dry, no erythema, swelling improved. Sensation intact. Admits to sensation to med/lat foot, 1st dorsal webspace. +DP/PT pulses, +PF, toe flexion. No active toe extension or DF. Calves soft NT neg homans Assessment and Plan (1) Closed fracture of right tibial plateau Assessment & Plan: cont PT/OT AFO VTE proph orthopedically stable elevate leg d/w DR. Mcguire, agrees with above Status: Acute (2) Closed fracture of fibula, proximal, right Status: Acute (3) Vitamin D deficiency Status: Acute
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
[2018-10-26] MEDS: oxyCODONE 5 mg Immediate Release Tab PO PRN (19:58)
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
[2018-10-27] MEDS: Calcium-Vit D 500 mg-200 Units Tab UD PO SCH (08:38)
[2018-10-27] MEDS: Enoxaparin 40 mg Syringe SC SCH (08:38)
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
[2018-10-28] MEDS: Calcium-Vit D 500 mg-200 Units Tab UD PO SCH (08:24)
[2018-10-28 10:03] LABS: HEMOGLOBIN 11.3 g/dL (12.0-18.0); MEAN CELL VOLUME 101.8 fl (80.0-94.0); MEAN CORPUSCULAR HEMOGLOBIN 34.8 pg (27.0-31.0); MEAN CORPUSCULAR HGB CONC 34.1 g/dL (33.0-37.0); RBC 3.26 Mil/uL (4.40-5.90); RED CELL DISTRIBUTION WIDTH 12.7 % (11.5-14.5); WHITE BLOOD COUNT 6.1 K/uL (4.8-10.8)
[2018-10-28 10:28] LABS: BLOOD UREA NITROGEN 18 mg/dl (9-20); CALCIUM 9.2 mg/dL (8.4-10.2); GFR NON-AFRICAN AMERICAN > 60
[2018-10-28] MEDS: Enoxaparin 40 mg Syringe SC SCH (11:01)
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
[2018-10-28] MEDS ORDERED: Bisacodyl 5mg EC Tab PO ONE (11:30)
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
[2018-10-29] MEDS: Calcium-Vit D 500 mg-200 Units Tab UD PO SCH (08:47)
[2018-10-29] MEDS: Enoxaparin 40 mg Syringe SC SCH (08:47)
--- NOTE | 2018-10-29 12:16 | CP.PCM.PN ---
Subjective - Date & Time of Evaluation Date of Evaluation: 10/29/18 Time of Evaluation: 08:00 - Subjective Subjective: Patient seen and examined at bedside comfortable. No complaints of pain. No acute events over weekend. No other complaints. Objective - Vital Signs/Intake and Output Vital Signs (last 24 hours): Temp Pulse Resp BP Pulse Ox 98.0 F 64 20 116/72 97 10/29/18 07:33 10/29/18 08:47 10/29/18 07:33 10/29/18 08:47 10/29/18 07:33 - Medications Medications: Current Medications Acetaminophen (Tylenol 325mg Tab) 650 mg PO Q6 PRN PRN Reason: Pain, Mild (1-3) Last Admin: 10/29/18 04:01 Dose: 650 mg Acetaminophen (Tylenol 325mg Tab) 650 mg PO Q6 PRN PRN Reason: Fever >100.4 F Last Admin: 10/17/18 00:12 Dose: 650 mg Calcium/Vitamin D (Oyster Shell Calcium/Vitamin D 500 Mg-200 Iu) 1 tab PO DAILY [facility] Last Admin: 10/29/18 08:47 Dose: 1 tab Cyanocobalamin (Vitamin B12 1000 Mcg/Ml Inj) 1,000 mcg IM DAILY [facility] Last Admin: 10/28/18 08:25 Dose: 1,000 mcg Docusate Sodium (Colace) 100 mg PO BID [facility] Last Admin: 10/29/18 08:47 Dose: 100 mg Enoxaparin Sodium (Lovenox) 40 mg SC DAILY [facility]; Protocol Last Admin: 10/29/18 08:47 Dose: 40 mg Ergocalciferol (Drisdol 50,000 Intl Units Cap) 1 cap PO Q7D [facility] Last Admin: 10/25/18 08:34 Dose: 1 cap Ferrous Sulfate (Feosol) 325 mg PO BID [facility] Last Admin: 10/29/18 08:47 Dose: 325 mg Folic Acid (Folic Acid) 1 mg PO DAILY [facility] Last Admin: 10/29/18 08:47 Dose: 1 mg Metoprolol Tartrate (Lopressor) 12.5 mg PO Q12 [facility] Last Admin: 10/29/18 08:47 Dose: 12.5 mg Oxycodone HCl (Oxycodone Immediate Release Tab) 5 mg PO Q4H PRN PRN Reason: Pain, moderate (4-7) Last Admin: 10/26/18 19:58 Dose: 5 mg Sennosides (Senokot Tab) 17.2 mg PO HS [facility] Last Admin: 10/28/18 21:04 Dose: 17.2 mg - Labs Labs: 10/28/18 09:40 10/28/18 09:40 PT 11.9 Seconds (9.8-13.1) 10/09/18 23:33 INR 1.0 10/09/18 23:33 APTT 27.4 Seconds (25.6-37.1) 10/09/18 23:33 - Extremities Exam Additional comments: RLE: AFO brace in place Dressings CDI sensation intact SP/DP/TN motor intact EHL/FHL, lack of ankle dorsiflexion pedal pulse intact calves soft NT b/l Assessment and Plan (1) Closed fracture of right tibial plateau Assessment & Plan: POD#14 s/p ORIF right lateral tibial plateau and proximal tibial fracture -Sutures and every other liana removed. Dressings changed. -PT/OT NWB RLE -DVT ppx -strict AFO brace at all times -orthopedically stable for discharge -d/w Dr. Mcguire who agrees with above Status: Acute
--- NOTE | 2018-10-29 15:04 | RAD ---
Date of service: 10/29/2018 PROCEDURE: Radiographs of the right tibia and fibula. HISTORY: s/p tibia ORIF COMPARISON: 10/11/2018. Preoperative CT right lower extremity. TECHNIQUE: Frontal and lateral views obtained. 2 views obtained. FINDINGS: BONES: Satisfactory position of orthopedic hardware proximal tibia. Redemonstration of proximal fibular fracture. Major fracture fragments are anatomically aligned. JOINT SPACES: Unremarkable. OTHER FINDINGS: None. IMPRESSION: Satisfactory postoperative status.
--- NOTE | 2018-10-30 07:50 | CP.PCM.PN ---
Subjective - Date & Time of Evaluation Date of Evaluation: 10/30/18 Time of Evaluation: 07:48 - Subjective Subjective: Patient offers no new complaints. Progressing slowly in PT. Objective - Vital Signs/Intake and Output Vital Signs (last 24 hours): Temp Pulse Resp BP Pulse Ox 98 F 67 18 112/55 L 98 10/30/18 00:21 10/30/18 00:21 10/30/18 00:21 10/30/18 00:21 10/30/18 00:21 - Medications Medications: Current Medications Acetaminophen (Tylenol 325mg Tab) 650 mg PO Q6 PRN PRN Reason: Pain, Mild (1-3) Last Admin: 10/29/18 04:01 Dose: 650 mg Acetaminophen (Tylenol 325mg Tab) 650 mg PO Q6 PRN PRN Reason: Fever >100.4 F Last Admin: 10/17/18 00:12 Dose: 650 mg Calcium/Vitamin D (Oyster Shell Calcium/Vitamin D 500 Mg-200 Iu) 1 tab PO DAILY [facility] Last Admin: 10/29/18 08:47 Dose: 1 tab Cyanocobalamin (Vitamin B12 1000 Mcg/Ml Inj) 1,000 mcg IM DAILY [facility] Last Admin: 10/29/18 14:34 Dose: 1,000 mcg Docusate Sodium (Colace) 100 mg PO BID [facility] Last Admin: 10/29/18 17:23 Dose: 100 mg Enoxaparin Sodium (Lovenox) 40 mg SC DAILY [facility]; Protocol Last Admin: 10/29/18 08:47 Dose: 40 mg Ergocalciferol (Drisdol 50,000 Intl Units Cap) 1 cap PO Q7D [facility] Last Admin: 10/25/18 08:34 Dose: 1 cap Ferrous Sulfate (Feosol) 325 mg PO BID [facility] Last Admin: 10/29/18 17:23 Dose: 325 mg Folic Acid (Folic Acid) 1 mg PO DAILY [facility] Last Admin: 10/29/18 08:47 Dose: 1 mg Metoprolol Tartrate (Lopressor) 12.5 mg PO Q12 [facility] Last Admin: 10/29/18 20:44 Dose: 12.5 mg Oxycodone HCl (Oxycodone Immediate Release Tab) 5 mg PO Q4H PRN PRN Reason: Pain, moderate (4-7) Last Admin: 04/19/19 19:58 Dose: 5 mg Sennosides (Senokot Tab) 17.2 mg PO HS [facility] Last Admin: 10/29/18 21:02 Dose: 17.2 mg - Labs Labs: 10/28/18 09:40 10/28/18 09:40 PT 11.9 Seconds (9.8-13.1) 10/09/18 23:33 INR 1.0 10/09/18 23:33 APTT 27.4 Seconds (25.6-37.1) 10/09/18 23:33 - Extremities Exam Additional comments: Right knee: immob d/c. AFO intact. sensation intact, No active DF/toe ext, +Ankle PF and flexion. +DP/PT pulses calves soft NT neg homans atient Name / ID : MARIIA MONDRAGON / [id number] Exam Date : 10/29/2018 10:37:42 ( Approved ) Study Comment : Sex / Age : M / 73Y Creator : mady garrison Dictator : Nirmal Connelly MD Dive Master : [employer] Operator : Nirmal Connelly MD Approver2 : Report Date : 10/29/2018 10:47:46 My Comment : Date of service: 10/29/2018 PROCEDURE: Radiographs of the right tibia and fibula. HISTORY: s/p tibia ORIF COMPARISON: 10/11/2018. Preoperative CT right lower extremity. TECHNIQUE: Frontal and lateral views obtained. 2 views obtained. FINDINGS: BONES: Satisfactory position of orthopedic hardware proximal tibia. Redemonstration of proximal fibular fracture. Major fracture fragments are anatomically aligned. JOINT SPACES: Unremarkable. OTHER FINDINGS: None. IMPRESSION: Satisfactory postoperative status. Assessment and Plan (1) Closed fracture of right tibial plateau Assessment & Plan: 2 weeks s/p ORIF right tib plateau cont PT/OT cont VTE proph orthopedically stable cont AFO at all times d/w DR. Mcguire, agrees with above Status: Acute (2) Closed fracture of fibula, proximal, right Status: Acute (3) Vitamin D deficiency Status: Acute
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
[2018-10-30] MEDS: Calcium-Vit D 500 mg-200 Units Tab UD PO SCH (08:21)
[2018-10-30] MEDS: Enoxaparin 40 mg Syringe SC SCH (08:22)
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
[2018-10-30] MEDS ORDERED: Lactulose 10 gm/15 ml Syrup PO ONE (10:40)
[2018-10-31] MEDS: Calcium-Vit D 500 mg-200 Units Tab UD PO SCH (08:16)
[2018-10-31] MEDS: Enoxaparin 40 mg Syringe SC SCH (08:17)
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
--- NOTE | 2018-10-31 11:52 | CP.PCM.PN ---
Subjective - Date & Time of Evaluation Date of Evaluation: 10/31/18 Time of Evaluation: 11:50 - Subjective Subjective: Patient states the AFO hurts his ankle, especially on the heel and the lateral side of his ankle. He has minimal knee pain. Objective - Vital Signs/Intake and Output Vital Signs (last 24 hours): Temp Pulse Resp BP Pulse Ox 97.7 F 65 20 114/64 100 10/31/18 08:39 10/31/18 09:00 10/31/18 08:39 10/31/18 08:39 10/31/18 09:00 - Medications Medications: Current Medications Acetaminophen (Tylenol 325mg Tab) 650 mg PO Q6 PRN PRN Reason: Pain, Mild (1-3) Last Admin: 10/29/18 04:01 Dose: 650 mg Acetaminophen (Tylenol 325mg Tab) 650 mg PO Q6 PRN PRN Reason: Fever >100.4 F Last Admin: 10/17/18 00:12 Dose: 650 mg Calcium/Vitamin D (Oyster Shell Calcium/Vitamin D 500 Mg-200 Iu) 1 tab PO DAILY [facility] Last Admin: 10/31/18 08:16 Dose: 1 tab Cyanocobalamin (Vitamin B12 1000 Mcg/Ml Inj) 1,000 mcg IM DAILY [facility] Last Admin: 10/31/18 08:17 Dose: 1,000 mcg Docusate Sodium (Colace) 100 mg PO BID [facility] Last Admin: 10/31/18 08:16 Dose: 100 mg Enoxaparin Sodium (Lovenox) 40 mg SC DAILY [facility]; Protocol Last Admin: 10/31/18 08:17 Dose: 40 mg Ergocalciferol (Drisdol 50,000 Intl Units Cap) 1 cap PO Q7D [facility] Last Admin: 10/25/18 08:34 Dose: 1 cap Ferrous Sulfate (Feosol) 325 mg PO BID [facility] Last Admin: 10/31/18 08:16 Dose: 325 mg Folic Acid (Folic Acid) 1 mg PO DAILY [facility] Last Admin: 10/31/18 08:16 Dose: 1 mg Ketorolac Tromethamine (Toradol) 30 mg IVP Q6 PRN PRN Reason: Pain, severe (8-10) Metoprolol Tartrate (Lopressor) 12.5 mg PO Q12 [facility] Last Admin: 10/31/18 08:30 Dose: 12.5 mg Sennosides (Senokot Tab) 17.2 mg PO HS [facility] Last Admin: 10/30/18 21:01 Dose: 17.2 mg Sodium Phosphate (Fleet Enema) 135 ml MS ONCE ONE Stop: 10/31/18 14:01 Tramadol HCl (Ultram) 50 mg PO Q4 PRN PRN Reason: Pain, moderate (4-7) Last Admin: 10/31/18 04:31 Dose: 50 mg - Labs Labs: 10/28/18 09:40 10/28/18 09:40 PT 11.9 Seconds (9.8-13.1) 10/09/18 23:33 INR 1.0 10/09/18 23:33 APTT 27.4 Seconds (25.6-37.1) 10/09/18 23:33 - Extremities Exam Additional comments: Right ankle: pressure to lateral mal and heel. The pad slips out under his foot. This AFO is suited to be in his shoe, but ill fitting and unable to wear it all the time. incision intact, dry, healing well calves soft NT neg homans sensation intact, No active DF/toe ext, +Ankle PF and flexion. Assessment and Plan (1) Closed fracture of right tibial plateau Assessment & Plan: cont PT/OT cont VTE proph orthopedically stable cont AFO at all times , will contact vendor to see if there are other options of bracing d/w DR. Mcguire, agrees with above Status: Acute (2) Closed fracture of fibula, proximal, right Status: Acute (3) Vitamin D deficiency Status: Acute
[2018-11-01] MEDS: Enoxaparin 40 mg Syringe SC SCH (08:07)
[2018-11-01] MEDS: Calcium-Vit D 500 mg-200 Units Tab UD PO SCH (08:08)
[2018-11-01] MEDS: Ergocalciferol 50,000 Intl Units Cap PO SCH (08:15)
--- NOTE | 2018-11-01 08:25 | CP.PCM.PN ---
Subjective - Date & Time of Evaluation Date of Evaluation: 11/01/18 Time of Evaluation: 08:25 - Subjective Subjective: Patient states brace is better today because of the little cushion now. Denies knee pain. Objective - Vital Signs/Intake and Output Vital Signs (last 24 hours): Temp Pulse Resp BP Pulse Ox 98.1 F 70 18 121/79 97 11/01/18 00:16 11/01/18 08:07 11/01/18 00:16 11/01/18 08:07 11/01/18 00:16 - Medications Medications: Current Medications Acetaminophen (Tylenol 325mg Tab) 650 mg PO Q6 PRN PRN Reason: Pain, Mild (1-3) Last Admin: 10/29/18 04:01 Dose: 650 mg Acetaminophen (Tylenol 325mg Tab) 650 mg PO Q6 PRN PRN Reason: Fever >100.4 F Last Admin: 10/17/18 00:12 Dose: 650 mg Calcium/Vitamin D (Oyster Shell Calcium/Vitamin D 500 Mg-200 Iu) 1 tab PO DAILY [facility] Last Admin: 11/01/18 08:08 Dose: 1 tab Cyanocobalamin (Vitamin B12 1000 Mcg/Ml Inj) 1,000 mcg IM DAILY [facility] Last Admin: 11/01/18 08:09 Dose: 1,000 mcg Docusate Sodium (Colace) 100 mg PO BID [facility] Last Admin: 11/01/18 08:08 Dose: 100 mg Enoxaparin Sodium (Lovenox) 40 mg SC DAILY [facility]; Protocol Last Admin: 11/01/18 08:07 Dose: 40 mg Ergocalciferol (Drisdol 50,000 Intl Units Cap) 1 cap PO Q7D [facility] Last Admin: 11/01/18 08:15 Dose: 1 cap Ferrous Sulfate (Feosol) 325 mg PO BID [facility] Last Admin: 11/01/18 08:08 Dose: 325 mg Folic Acid (Folic Acid) 1 mg PO DAILY [facility] Last Admin: 11/01/18 08:08 Dose: 1 mg Ketorolac Tromethamine (Toradol) 30 mg IVP Q6 PRN PRN Reason: Pain, severe (8-10) Metoprolol Tartrate (Lopressor) 12.5 mg PO Q12 [facility] Last Admin: 11/01/18 08:07 Dose: 12.5 mg Sennosides (Senokot Tab) 17.2 mg PO HS [facility] Last Admin: 10/31/18 21:23 Dose: 17.2 mg Tramadol HCl (Ultram) 50 mg PO Q4 PRN PRN Reason: Pain, moderate (4-7) Last Admin: 10/31/18 21:20 Dose: 50 mg - Labs Labs: 10/28/18 09:40 10/28/18 09:40 PT 11.9 Seconds (9.8-13.1) 10/09/18 23:33 INR 1.0 10/09/18 23:33 APTT 27.4 Seconds (25.6-37.1) 10/09/18 23:33 - Extremities Exam Additional comments: incision intact, dry, healing well calves soft NT neg homans +DP/PT pulses sensation intact, No active DF/toe ext, +Ankle PF and flexion AFO intact Assessment and Plan (1) Closed fracture of right tibial plateau Assessment & Plan: cont PT/OT cont VTE proph orthopedically stable NWB RLE cont AFO at all times d/w DR. Mcguire, agrees with above Status: Acute (2) Closed fracture of fibula, proximal, right Status: Acute (3) Vitamin D deficiency Status: Acute
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
--- NOTE | 2018-11-02 09:03 | CP.PCM.PN ---
Subjective - Date & Time of Evaluation Date of Evaluation: 11/02/18 Time of Evaluation: 09:03 - Subjective Subjective: Patient states pain in ankle is better and he feels he is moving toes better. No new complaints. Objective - Vital Signs/Intake and Output Vital Signs (last 24 hours): Temp Pulse Resp BP Pulse Ox 97.5 F L 69 19 127/67 98 11/02/18 07:50 11/02/18 07:50 11/02/18 07:50 11/02/18 07:50 11/02/18 07:50 - Medications Medications: Current Medications Acetaminophen (Tylenol 325mg Tab) 650 mg PO Q6 PRN PRN Reason: Pain, Mild (1-3) Last Admin: 10/29/18 04:01 Dose: 650 mg Acetaminophen (Tylenol 325mg Tab) 650 mg PO Q6 PRN PRN Reason: Fever >100.4 F Last Admin: 10/17/18 00:12 Dose: 650 mg Calcium/Vitamin D (Oyster Shell Calcium/Vitamin D 500 Mg-200 Iu) 1 tab PO DAILY [facility] Last Admin: 11/01/18 08:08 Dose: 1 tab Cyanocobalamin (Vitamin B12 1000 Mcg/Ml Inj) 1,000 mcg IM DAILY [facility] Last Admin: 11/01/18 08:09 Dose: 1,000 mcg Docusate Sodium (Colace) 100 mg PO BID [facility] Last Admin: 11/01/18 16:14 Dose: 100 mg Enoxaparin Sodium (Lovenox) 40 mg SC DAILY [facility]; Protocol Last Admin: 11/01/18 08:07 Dose: 40 mg Ergocalciferol (Drisdol 50,000 Intl Units Cap) 1 cap PO Q7D [facility] Last Admin: 11/01/18 08:15 Dose: 1 cap Ferrous Sulfate (Feosol) 325 mg PO BID [facility] Last Admin: 11/01/18 16:15 Dose: 325 mg Folic Acid (Folic Acid) 1 mg PO DAILY [facility] Last Admin: 11/01/18 08:08 Dose: 1 mg Ketorolac Tromethamine (Toradol) 30 mg IVP Q6 PRN PRN Reason: Pain, severe (8-10) Metoprolol Tartrate (Lopressor) 12.5 mg PO Q12 [facility] Last Admin: 11/01/18 21:16 Dose: 12.5 mg Sennosides (Senokot Tab) 17.2 mg PO HS [facility] Last Admin: 11/01/18 21:16 Dose: 17.2 mg Tramadol HCl (Ultram) 50 mg PO Q4 PRN PRN Reason: Pain, moderate (4-7) Last Admin: 11/01/18 23:48 Dose: 50 mg - Labs Labs: 10/28/18 09:40 10/28/18 09:40 PT 11.9 Seconds (9.8-13.1) 10/09/18 23:33 INR 1.0 10/09/18 23:33 APTT 27.4 Seconds (25.6-37.1) 10/09/18 23:33 - Extremities Exam Additional comments: incision intact, dry, healing well calves soft NT neg homans +DP/PT pulses sensation intact, ? twitch toe extension today +Ankle PF and flexion AFO intact Assessment and Plan (1) Closed fracture of right tibial plateau Assessment & Plan: cont PT/OT cont VTE proph orthopedically stable NWB RLE cont AFO at all times d/w DR. Mcguire, agrees with above Status: Acute (2) Closed fracture of fibula, proximal, right Status: Acute (3) Vitamin D deficiency Status: Acute
[2018-11-02] MEDS: Enoxaparin 40 mg Syringe SC SCH (09:36)
[2018-11-02] MEDS: Calcium-Vit D 500 mg-200 Units Tab UD PO SCH (10:35)
[2018-11-03] MEDS: Enoxaparin 40 mg Syringe SC SCH (09:38)
[2018-11-03] MEDS: Calcium-Vit D 500 mg-200 Units Tab UD PO SCH (09:38)
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
[2018-11-04] MEDS: Calcium-Vit D 500 mg-200 Units Tab UD PO SCH (10:00)
[2018-11-04] MEDS: Enoxaparin 40 mg Syringe SC SCH (10:00)
--- NOTE | 2018-11-05 08:01 | CP.PCM.PN ---
Subjective - Date & Time of Evaluation Date of Evaluation: 11/05/18 Time of Evaluation: 07:57 - Subjective Subjective: Patient states he is having itching on knee. Patient is not wearing AFO, again reinforced it must be worn all the time. Objective - Vital Signs/Intake and Output Vital Signs (last 24 hours): Temp Pulse Resp BP Pulse Ox 98.2 F 78 18 128/83 97 11/04/18 23:44 11/04/18 23:44 11/04/18 23:44 11/04/18 23:44 11/04/18 23:44 - Medications Medications: Current Medications Acetaminophen (Tylenol 325mg Tab) 650 mg PO Q6 PRN PRN Reason: Pain, Mild (1-3) Last Admin: 10/29/18 04:01 Dose: 650 mg Acetaminophen (Tylenol 325mg Tab) 650 mg PO Q6 PRN PRN Reason: Fever >100.4 F Last Admin: 10/17/18 00:12 Dose: 650 mg Bisacodyl (Dulcolax) 5 mg PO DAILY PRN PRN Reason: Constipation Calcium/Vitamin D (Oyster Shell Calcium/Vitamin D 500 Mg-200 Iu) 1 tab PO DAILY [facility] Last Admin: 11/04/18 10:00 Dose: 1 tab Cyanocobalamin (Vitamin B12 1000 Mcg/Ml Inj) 1,000 mcg IM DAILY [facility] Last Admin: 11/03/18 12:48 Dose: 1,000 mcg Docusate Sodium (Colace) 100 mg PO BID [facility] Last Admin: 11/04/18 17:07 Dose: 100 mg Enoxaparin Sodium (Lovenox) 40 mg SC DAILY [facility]; Protocol Last Admin: 11/04/18 10:00 Dose: 40 mg Ergocalciferol (Drisdol 50,000 Intl Units Cap) 1 cap PO Q7D [facility] Last Admin: 11/01/18 08:15 Dose: 1 cap Ferrous Sulfate (Feosol) 325 mg PO BID [facility] Last Admin: 11/04/18 17:07 Dose: 325 mg Folic Acid (Folic Acid) 1 mg PO DAILY [facility] Last Admin: 11/04/18 09:59 Dose: 1 mg Metoprolol Tartrate (Lopressor) 12.5 mg PO Q12 [facility] Last Admin: 11/04/18 21:25 Dose: 12.5 mg Sennosides (Senokot Tab) 17.2 mg PO HS [facility] Last Admin: 11/04/18 21:25 Dose: 17.2 mg Tramadol HCl (Ultram) 50 mg PO Q4 PRN PRN Reason: Pain, moderate (4-7) Last Admin: 11/04/18 21:24 Dose: 50 mg - Labs Labs: 10/28/18 09:40 10/28/18 09:40 PT 11.9 Seconds (9.8-13.1) 10/09/18 23:33 INR 1.0 10/09/18 23:33 APTT 27.4 Seconds (25.6-37.1) 10/09/18 23:33 - Extremities Exam Additional comments: Right knee: remaining liana removed. Incision intact, dry, healed. incision intact, dry, healing well calves soft NT neg homans +DP/PT pulses sensation intact, no active toe ext or DF+Ankle PF and flexion AFO placed Assessment and Plan (1) Closed fracture of right tibial plateau Assessment & Plan: cont PT/OT cont VTE proph orthopedically stable NWB RLE cont AFO at all times d/w DR. Mcguire, agrees with above Status: Acute (2) Closed fracture of fibula, proximal, right Status: Acute (3) Vitamin D deficiency Status: Acute
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
[2018-11-05] MEDS: Calcium-Vit D 500 mg-200 Units Tab UD PO SCH (09:23)
[2018-11-05] MEDS: Enoxaparin 40 mg Syringe SC SCH (09:23)
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
[2018-11-06] MEDS: Calcium-Vit D 500 mg-200 Units Tab UD PO SCH (08:50)
[2018-11-06] MEDS: Bisacodyl 5mg EC Tab PO PRN (08:51)
[2018-11-06] MEDS: Enoxaparin 40 mg Syringe SC SCH (08:52)
--- NOTE | 2018-11-06 09:57 | CP.PCM.PN ---
Subjective - Date & Time of Evaluation Date of Evaluation: 11/06/18 Time of Evaluation: 09:00 - Subjective Subjective: Patient seen and examined at bedside. No complaints of pain. Tolerating PT well. No other complaints. Objective - Vital Signs/Intake and Output Vital Signs (last 24 hours): Temp Pulse Resp BP Pulse Ox 98.1 F 75 18 130/71 99 11/06/18 07:54 11/06/18 08:51 11/06/18 07:54 11/06/18 08:51 11/06/18 07:54 - Medications Medications: Current Medications Acetaminophen (Tylenol 325mg Tab) 650 mg PO Q6 PRN PRN Reason: Pain, Mild (1-3) Last Admin: 10/29/18 04:01 Dose: 650 mg Acetaminophen (Tylenol 325mg Tab) 650 mg PO Q6 PRN PRN Reason: Fever >100.4 F Last Admin: 10/17/18 00:12 Dose: 650 mg Bisacodyl (Dulcolax) 5 mg PO DAILY PRN PRN Reason: Constipation Last Admin: 11/06/18 08:51 Dose: 5 mg Calcium/Vitamin D (Oyster Shell Calcium/Vitamin D 500 Mg-200 Iu) 1 tab PO DAILY [facility] Last Admin: 11/06/18 08:50 Dose: 1 tab Cyanocobalamin (Vitamin B12 1000 Mcg/Ml Inj) 1,000 mcg IM DAILY [facility] Last Admin: 11/05/18 17:15 Dose: 1,000 mcg Docusate Sodium (Colace) 100 mg PO BID [facility] Last Admin: 11/06/18 08:49 Dose: 100 mg Enoxaparin Sodium (Lovenox) 40 mg SC DAILY [facility]; Protocol Last Admin: 11/06/18 08:52 Dose: 40 mg Ergocalciferol (Drisdol 50,000 Intl Units Cap) 1 cap PO Q7D [facility] Last Admin: 11/01/18 08:15 Dose: 1 cap Ferrous Sulfate (Feosol) 325 mg PO BID [facility] Last Admin: 11/06/18 08:50 Dose: 325 mg Folic Acid (Folic Acid) 1 mg PO DAILY [facility] Last Admin: 11/06/18 08:52 Dose: 1 mg Metoprolol Tartrate (Lopressor) 12.5 mg PO Q12 [facility] Last Admin: 11/06/18 08:51 Dose: 12.5 mg Sennosides (Senokot Tab) 17.2 mg PO HS [facility] Last Admin: 11/05/18 21:08 Dose: 17.2 mg Tramadol HCl (Ultram) 50 mg PO Q4 PRN PRN Reason: Pain, moderate (4-7) Last Admin: 11/04/18 21:24 Dose: 50 mg - Labs Labs: 10/28/18 09:40 10/28/18 09:40 PT 11.9 Seconds (9.8-13.1) 10/09/18 23:33 INR 1.0 10/09/18 23:33 APTT 27.4 Seconds (25.6-37.1) 10/09/18 23:33 - Extremities Exam Additional comments: RLE: PODUS boot in place Dressings CDI sensation intact SP/DP/TN motor intact EHL/FHL, minimal ankle dorsiflexion pedal pulse intact calves soft NT b/l Assessment and Plan (1) Closed fracture of right tibial plateau Assessment & Plan: 4 weeks s/p ORIF right lateral tibial plateau and proximal tibial fracture -PT/OT NWB RLE -DVT ppx -strict foot brace on at all times -orthopedically stable for discharge, unsafe d/c to community at this time as per PT -d/w Dr. Mcguire who agrees with above Status: Acute
[2018-11-07] MEDS: Enoxaparin 40 mg Syringe SC SCH (09:07)
[2018-11-07] MEDS: Calcium-Vit D 500 mg-200 Units Tab UD PO SCH (09:09)
--- NOTE | 2018-11-07 14:06 | CP.PCM.PN ---
Subjective - Date & Time of Evaluation Date of Evaluation: 11/07/18 Time of Evaluation: 12:00 - Subjective Subjective: Patient seen and examined at bedside. No c/o pain. Offers no other complaints. Objective - Vital Signs/Intake and Output Vital Signs (last 24 hours): Temp Pulse Resp BP Pulse Ox 98 F 69 20 124/63 99 11/07/18 08:22 11/07/18 09:09 11/07/18 08:22 11/07/18 09:09 11/07/18 08:22 - Medications Medications: Current Medications Acetaminophen (Tylenol 325mg Tab) 650 mg PO Q6 PRN PRN Reason: Pain, Mild (1-3) Last Admin: 10/29/18 04:01 Dose: 650 mg Acetaminophen (Tylenol 325mg Tab) 650 mg PO Q6 PRN PRN Reason: Fever >100.4 F Last Admin: 10/17/18 00:12 Dose: 650 mg Bisacodyl (Dulcolax) 5 mg PO DAILY PRN PRN Reason: Constipation Last Admin: 11/06/18 08:51 Dose: 5 mg Calcium/Vitamin D (Oyster Shell Calcium/Vitamin D 500 Mg-200 Iu) 1 tab PO DAILY [facility] Last Admin: 11/07/18 09:09 Dose: 1 tab Cyanocobalamin (Vitamin B12 1000 Mcg/Ml Inj) 1,000 mcg IM DAILY [facility] Last Admin: 11/07/18 09:10 Dose: 1,000 mcg Docusate Sodium (Colace) 100 mg PO BID [facility] Last Admin: 11/07/18 09:08 Dose: 100 mg Enoxaparin Sodium (Lovenox) 40 mg SC DAILY [facility]; Protocol Last Admin: 11/07/18 09:07 Dose: 40 mg Ergocalciferol (Drisdol 50,000 Intl Units Cap) 1 cap PO Q7D [facility] Last Admin: 11/01/18 08:15 Dose: 1 cap Ferrous Sulfate (Feosol) 325 mg PO BID [facility] Last Admin: 11/07/18 09:08 Dose: 325 mg Folic Acid (Folic Acid) 1 mg PO DAILY [facility] Last Admin: 11/07/18 09:09 Dose: 1 mg Metoprolol Tartrate (Lopressor) 12.5 mg PO Q12 [facility] Last Admin: 11/07/18 09:09 Dose: 12.5 mg Sennosides (Senokot Tab) 17.2 mg PO HS [facility] Last Admin: 11/06/18 21:05 Dose: 17.2 mg Tramadol HCl (Ultram) 50 mg PO Q4 PRN PRN Reason: Pain, moderate (4-7) Last Admin: 11/04/18 21:24 Dose: 50 mg - Labs Labs: 10/28/18 09:40 10/28/18 09:40 PT 11.9 Seconds (9.8-13.1) 10/09/18 23:33 INR 1.0 10/09/18 23:33 APTT 27.4 Seconds (25.6-37.1) 10/09/18 23:33 - Extremities Exam Additional comments: RLE: PODUS boot in place Dressings CDI sensation intact SP/DP/TN motor intact EHL/FHL, minimal ankle dorsiflexion pedal pulse intact calves soft NT b/l Assessment and Plan (1) Closed fracture of right tibial plateau Assessment & Plan: 4 weeks s/p ORIF right lateral tibial plateau and proximal tibial fracture -PT/OT NWB RLE -DVT ppx -strict foot PODUS on at all times -orthopedically stable for discharge, unsafe d/c to community at this time as per PT -d/w Dr. Mcguire who agrees with above Status: Acute
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
[2018-11-08 06:59] LABS: BLOOD UREA NITROGEN 21 mg/dl (9-20); GFR NON-AFRICAN AMERICAN > 60
[2018-11-08 07:22] LABS: HEMOGLOBIN 11.6 g/dL (12.0-18.0); MEAN CELL VOLUME 104.4 fl (80.0-94.0); MEAN CORPUSCULAR HEMOGLOBIN 34.8 pg (27.0-31.0); MEAN CORPUSCULAR HGB CONC 33.4 g/dL (33.0-37.0); RBC 3.34 Mil/uL (4.40-5.90); RED CELL DISTRIBUTION WIDTH 13.9 % (11.5-14.5); WHITE BLOOD COUNT 4.7 K/uL (4.8-10.8)
--- NOTE | 2018-11-08 07:47 | CP.PCM.PN ---
Subjective - Date & Time of Evaluation Date of Evaluation: 11/08/18 Time of Evaluation: 07:30 - Subjective Subjective: Patient seen and examined at bedside. No complaints of pain. No acute changes since yesterday. Tolerating PT well. Objective - Vital Signs/Intake and Output Vital Signs (last 24 hours): Temp Pulse Resp BP Pulse Ox 98.1 F 76 20 117/65 98 11/07/18 23:45 11/07/18 23:45 11/07/18 23:45 11/07/18 23:45 11/07/18 23:45 - Medications Medications: Current Medications Acetaminophen (Tylenol 325mg Tab) 650 mg PO Q6 PRN PRN Reason: Pain, Mild (1-3) Last Admin: 10/29/18 04:01 Dose: 650 mg Acetaminophen (Tylenol 325mg Tab) 650 mg PO Q6 PRN PRN Reason: Fever >100.4 F Last Admin: 10/17/18 00:12 Dose: 650 mg Bisacodyl (Dulcolax) 5 mg PO DAILY PRN PRN Reason: Constipation Last Admin: 11/06/18 08:51 Dose: 5 mg Calcium/Vitamin D (Oyster Shell Calcium/Vitamin D 500 Mg-200 Iu) 1 tab PO DAILY [facility] Last Admin: 11/07/18 09:09 Dose: 1 tab Cyanocobalamin (Vitamin B12 1000 Mcg/Ml Inj) 1,000 mcg IM DAILY [facility] Last Admin: 11/07/18 09:10 Dose: 1,000 mcg Docusate Sodium (Colace) 100 mg PO BID [facility] Last Admin: 11/07/18 16:07 Dose: 100 mg Enoxaparin Sodium (Lovenox) 40 mg SC DAILY [facility]; Protocol Last Admin: 11/07/18 09:07 Dose: 40 mg Ergocalciferol (Drisdol 50,000 Intl Units Cap) 1 cap PO Q7D [facility] Last Admin: 11/01/18 08:15 Dose: 1 cap Ferrous Sulfate (Feosol) 325 mg PO BID [facility] Last Admin: 11/07/18 16:07 Dose: 325 mg Folic Acid (Folic Acid) 1 mg PO DAILY [facility] Last Admin: 11/07/18 09:09 Dose: 1 mg Metoprolol Tartrate (Lopressor) 12.5 mg PO Q12 [facility] Last Admin: 05/01/19 21:08 Dose: 12.5 mg Sennosides (Senokot Tab) 17.2 mg PO HS [facility] Last Admin: 11/07/18 23:24 Dose: 17.2 mg Tramadol HCl (Ultram) 50 mg PO Q4 PRN PRN Reason: Pain, moderate (4-7) Last Admin: 11/07/18 21:09 Dose: 50 mg - Labs Labs: 10/28/18 09:40 11/08/18 06:20 PT 11.9 Seconds (9.8-13.1) 10/09/18 23:33 INR 1.0 10/09/18 23:33 APTT 27.4 Seconds (25.6-37.1) 10/09/18 23:33 - Extremities Exam Additional comments: RLE: PODUS boot in place Dressings CDI sensation intact SP/DP/TN motor intact EHL/FHL, minimal ankle dorsiflexion pedal pulse intact calves soft NT b/l Assessment and Plan (1) Closed fracture of right tibial plateau Assessment & Plan: 4 weeks s/p ORIF right lateral tibial plateau and proximal tibial fracture, post-traumatic deep peroneal nerve palsy -PT/OT NWB RLE -strict foot PODUS on at all times -orthopedically stable for discharge, unsafe d/c to community at this time as per PT -d/w Dr. Mcguire who agrees with above Status: Acute
[2018-11-08] MEDS: Enoxaparin 40 mg Syringe SC SCH (10:00)
[2018-11-08] MEDS: Ergocalciferol 50,000 Intl Units Cap PO SCH (10:01)
[2018-11-08] MEDS: Calcium-Vit D 500 mg-200 Units Tab UD PO SCH (10:04)
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
[2018-11-09] MEDS: Enoxaparin 40 mg Syringe SC SCH (08:49)
[2018-11-09] MEDS: Bisacodyl 5mg EC Tab PO PRN (08:50)
[2018-11-09] MEDS: Calcium-Vit D 500 mg-200 Units Tab UD PO SCH (08:52)
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
--- NOTE | 2018-11-09 10:34 | CP.PCM.PN ---
Subjective - Date & Time of Evaluation Date of Evaluation: 11/09/18 Time of Evaluation: 10:34 - Subjective Subjective: Patient states pain in ankle is better with this brace. He says he feels his ankle is getting better. Objective - Vital Signs/Intake and Output Vital Signs (last 24 hours): Temp Pulse Resp BP Pulse Ox 97.7 F 68 19 127/70 98 11/09/18 07:34 11/09/18 08:50 11/09/18 07:34 11/09/18 08:50 11/09/18 07:34 - Medications Medications: Current Medications Acetaminophen (Tylenol 325mg Tab) 650 mg PO Q6 PRN PRN Reason: Pain, Mild (1-3) Last Admin: 10/29/18 04:01 Dose: 650 mg Acetaminophen (Tylenol 325mg Tab) 650 mg PO Q6 PRN PRN Reason: Fever >100.4 F Last Admin: 10/17/18 00:12 Dose: 650 mg Bisacodyl (Dulcolax) 5 mg PO DAILY PRN PRN Reason: Constipation Last Admin: 11/09/18 08:50 Dose: 5 mg Calcium/Vitamin D (Oyster Shell Calcium/Vitamin D 500 Mg-200 Iu) 1 tab PO DAILY [facility] Last Admin: 11/09/18 08:52 Dose: 1 tab Cyanocobalamin (Vitamin B12 1000 Mcg/Ml Inj) 1,000 mcg IM DAILY [facility] Last Admin: 11/09/18 10:28 Dose: 1,000 mcg Docusate Sodium (Colace) 100 mg PO BID [facility] Last Admin: 11/09/18 08:49 Dose: 100 mg Enoxaparin Sodium (Lovenox) 40 mg SC DAILY [facility]; Protocol Last Admin: 11/09/18 08:49 Dose: 40 mg Ergocalciferol (Drisdol 50,000 Intl Units Cap) 1 cap PO Q7D [facility] Last Admin: 11/08/18 10:01 Dose: 1 cap Ferrous Sulfate (Feosol) 325 mg PO BID [facility] Last Admin: 11/09/18 08:49 Dose: 325 mg Folic Acid (Folic Acid) 1 mg PO DAILY [facility] Last Admin: 11/09/18 08:52 Dose: 1 mg Metoprolol Tartrate (Lopressor) 12.5 mg PO Q12 [facility] Last Admin: 11/09/18 08:50 Dose: 12.5 mg Sennosides (Senokot Tab) 17.2 mg PO HS [facility] Last Admin: 11/08/18 21:11 Dose: 17.2 mg Tramadol HCl (Ultram) 50 mg PO Q4 PRN PRN Reason: Pain, moderate (4-7) Last Admin: 11/07/18 21:09 Dose: 50 mg - Labs Labs: 11/08/18 06:20 11/08/18 06:20 PT 11.9 Seconds (9.8-13.1) 10/09/18 23:33 INR 1.0 10/09/18 23:33 APTT 27.4 Seconds (25.6-37.1) 10/09/18 23:33 - Extremities Exam Additional comments: +extension of toes and weak DF of ankle noted clearly today sensation intact calves soft Nt neg homans podus boot intact +dp/pt pulses incisions dry intact, healed Assessment and Plan (1) Closed fracture of right tibial plateau Assessment & Plan: s/p ORIF right tibial plateau peroneal nerve motor function improving cont NWBb at this time ROM knee, gentle plan repeat xrays on monday cont VTE proph/PT/OT d/w Dr. Mcguire, agrees with above Status: Acute (2) Closed fracture of fibula, proximal, right Status: Acute (3) Vitamin D deficiency Status: Acute
[2018-11-10] MEDS: Enoxaparin 40 mg Syringe SC SCH (09:14)
[2018-11-10] MEDS: Calcium-Vit D 500 mg-200 Units Tab UD PO SCH (09:14)
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
[2018-11-11] MEDS: Enoxaparin 40 mg Syringe SC SCH (10:14)
[2018-11-11] MEDS: Calcium-Vit D 500 mg-200 Units Tab UD PO SCH (10:15)
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
[2018-11-12 07:00] LABS: HEMOGLOBIN 11.5 g/dL (12.0-18.0); MEAN CELL VOLUME 103.2 fl (80.0-94.0); MEAN CORPUSCULAR HEMOGLOBIN 34.8 pg (27.0-31.0); MEAN CORPUSCULAR HGB CONC 33.7 g/dL (33.0-37.0); RBC 3.31 Mil/uL (4.40-5.90); RED CELL DISTRIBUTION WIDTH 13.6 % (11.5-14.5); WHITE BLOOD COUNT 5.2 K/uL (4.8-10.8)
[2018-11-12 07:25] LABS: BLOOD UREA NITROGEN 23 mg/dl (9-20); CALCIUM 9.4 mg/dL (8.4-10.2); GFR NON-AFRICAN AMERICAN > 60
[2018-11-12] MEDS: Calcium-Vit D 500 mg-200 Units Tab UD PO SCH (08:44)
[2018-11-12] MEDS: Enoxaparin 40 mg Syringe SC SCH (08:45)
--- NOTE | 2018-11-12 09:38 | CP.PCM.PN ---
Subjective - Date & Time of Evaluation Date of Evaluation: 11/12/18 Time of Evaluation: 08:00 - Subjective Subjective: Patient seen and examined at bedside. Offer no new complaints. No complaints of pain. Tolerating PT well. Objective - Vital Signs/Intake and Output Vital Signs (last 24 hours): Temp Pulse Resp BP Pulse Ox 97.8 F 77 19 136/72 98 11/12/18 07:50 11/12/18 08:44 11/12/18 07:50 11/12/18 08:44 11/12/18 07:50 - Medications Medications: Current Medications Acetaminophen (Tylenol 325mg Tab) 650 mg PO Q6 PRN PRN Reason: Pain, Mild (1-3) Last Admin: 10/29/18 04:01 Dose: 650 mg Acetaminophen (Tylenol 325mg Tab) 650 mg PO Q6 PRN PRN Reason: Fever >100.4 F Last Admin: 10/17/18 00:12 Dose: 650 mg Bisacodyl (Dulcolax) 5 mg PO DAILY PRN PRN Reason: Constipation Last Admin: 11/09/18 08:50 Dose: 5 mg Calcium/Vitamin D (Oyster Shell Calcium/Vitamin D 500 Mg-200 Iu) 1 tab PO DAILY [facility] Last Admin: 11/12/18 08:44 Dose: 1 tab Docusate Sodium (Colace) 100 mg PO BID [facility] Last Admin: 11/12/18 08:44 Dose: 100 mg Enoxaparin Sodium (Lovenox) 40 mg SC DAILY [facility]; Protocol Last Admin: 11/12/18 08:45 Dose: 40 mg Ergocalciferol (Drisdol 50,000 Intl Units Cap) 1 cap PO Q7D [facility] Last Admin: 11/08/18 10:01 Dose: 1 cap Ferrous Sulfate (Feosol) 325 mg PO BID [facility] Last Admin: 11/12/18 08:44 Dose: 325 mg Folic Acid (Folic Acid) 1 mg PO DAILY [facility] Last Admin: 11/12/18 08:44 Dose: 1 mg Metoprolol Tartrate (Lopressor) 12.5 mg PO Q12 [facility] Last Admin: 11/12/18 08:44 Dose: 12.5 mg Sennosides (Senokot Tab) 17.2 mg PO HS [facility] Last Admin: 11/11/18 21:26 Dose: 17.2 mg Tramadol HCl (Ultram) 50 mg PO Q4 PRN PRN Reason: Pain, moderate (4-7) Last Admin: 11/11/18 20:40 Dose: 50 mg - Labs Labs: 11/12/18 05:49 11/12/18 05:49 PT 11.9 Seconds (9.8-13.1) 10/09/18 23:33 INR 1.0 10/09/18 23:33 APTT 27.4 Seconds (25.6-37.1) 10/09/18 23:33 - Extremities Exam Additional comments: RLE: PODUS boot in place Dressings CDI Incision CDI sensation intact SP/DP/TN motor intact EHL/FHL, minimal ankle dorsiflexion pedal pulse intact calves soft NT b/l Assessment and Plan (1) Closed fracture of right tibial plateau Assessment & Plan: 5 weeks s/p ORIF right lateral tibial plateau and proximal tibial fracture, post-traumatic deep peroneal nerve palsy -PT/OT NWB RLE -strict foot PODUS on at all times -orthopedically stable for discharge -d/w Dr. Mcguire who agrees with above Status: Acute
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
--- NOTE | 2018-11-12 14:23 | RAD ---
Date of service: 11/12/2018 PROCEDURE: Right Knee Radiographs. HISTORY: follow up s/p ORIF tibial plateau COMPARISON: 10/15/2018 TECHNIQUE: 2 views obtained. FINDINGS: BONES: There is a plate and multiple screws in the proximal tibia. There is a comminuted fracture of the proximal fibula. Findings are unchanged JOINTS: Normal. No osteoarthritis. JOINT EFFUSION: None. OTHER FINDINGS: None. IMPRESSION: There is a plate and multiple screws in the proximal tibia. There is a comminuted fracture of the proximal fibula. Findings are unchanged
[2018-11-12] MEDS: Bisacodyl 5mg EC Tab PO PRN (16:41)
[2018-11-13] MEDS: Calcium-Vit D 500 mg-200 Units Tab UD PO SCH (08:30)
[2018-11-13] MEDS: Enoxaparin 40 mg Syringe SC SCH (08:30)
--- NOTE | 2018-11-13 09:12 | CP.PCM.PN ---
Subjective - Date & Time of Evaluation Date of Evaluation: 11/13/18 Time of Evaluation: 09:10 - Subjective Subjective: Patient offers no complaints. pain controlled. Feels leg is getting stronger. Objective - Vital Signs/Intake and Output Vital Signs (last 24 hours): Temp Pulse Resp BP Pulse Ox 98.1 F 69 20 136/73 98 11/13/18 08:10 11/13/18 08:29 11/13/18 08:10 11/13/18 08:29 11/13/18 08:10 - Medications Medications: Current Medications Acetaminophen (Tylenol 325mg Tab) 650 mg PO Q6 PRN PRN Reason: Pain, Mild (1-3) Last Admin: 10/29/18 04:01 Dose: 650 mg Acetaminophen (Tylenol 325mg Tab) 650 mg PO Q6 PRN PRN Reason: Fever >100.4 F Last Admin: 10/17/18 00:12 Dose: 650 mg Bisacodyl (Dulcolax) 5 mg PO DAILY PRN PRN Reason: Constipation Last Admin: 11/12/18 16:41 Dose: 5 mg Calcium/Vitamin D (Oyster Shell Calcium/Vitamin D 500 Mg-200 Iu) 1 tab PO DAILY [facility] Last Admin: 11/13/18 08:30 Dose: 1 tab Docusate Sodium (Colace) 100 mg PO BID [facility] Last Admin: 11/13/18 08:29 Dose: 100 mg Enoxaparin Sodium (Lovenox) 40 mg SC DAILY [facility]; Protocol Last Admin: 11/13/18 08:30 Dose: 40 mg Ergocalciferol (Drisdol 50,000 Intl Units Cap) 1 cap PO Q7D [facility] Last Admin: 11/08/18 10:01 Dose: 1 cap Ferrous Sulfate (Feosol) 325 mg PO BID [facility] Last Admin: 11/13/18 08:29 Dose: 325 mg Folic Acid (Folic Acid) 1 mg PO DAILY [facility] Last Admin: 11/13/18 08:29 Dose: 1 mg Metoprolol Tartrate (Lopressor) 12.5 mg PO Q12 [facility] Last Admin: 11/13/18 08:29 Dose: 12.5 mg Sennosides (Senokot Tab) 17.2 mg PO HS [facility] Last Admin: 11/12/18 21:07 Dose: 17.2 mg Tramadol HCl (Ultram) 50 mg PO Q4 PRN PRN Reason: Pain, moderate (4-7) Last Admin: 11/12/18 22:46 Dose: 50 mg - Labs Labs: 11/12/18 05:49 11/12/18 05:49 PT 11.9 Seconds (9.8-13.1) 10/09/18 23:33 INR 1.0 10/09/18 23:33 APTT 27.4 Seconds (25.6-37.1) 10/09/18 23:33 - Extremities Exam Additional comments: Right knee: incision healed, ROM 12-90 degrees, instructed on extension exercises and quad sets, sensation intact, +DP/PT pulses calves soft NT neg homans +toe ext, ankle DF but weak Assessment and Plan (1) Closed fracture of right tibial plateau Assessment & Plan: 4 weeks s/p ORIF right tibial plateau resolving peroneal nerve palsy podus boot PWB ROM knee ortho stable d/w Dr. Mcguire, agrees with above Status: Acute (2) Closed fracture of fibula, proximal, right Status: Acute (3) Vitamin D deficiency Status: Acute
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
[2018-11-14] MEDS: Enoxaparin 40 mg Syringe SC SCH (08:18)
[2018-11-14] MEDS: Calcium-Vit D 500 mg-200 Units Tab UD PO SCH (08:19)
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
--- NOTE | 2018-11-14 16:20 | CP.PCM.PN ---
Subjective - Date & Time of Evaluation Date of Evaluation: 11/14/18 Time of Evaluation: 14:00 - Subjective Subjective: Patient seen and examined at bedside comfortable. Pain well controlled. Tolerating PT 20% WB well with RW. No other complaints. Objective - Vital Signs/Intake and Output Vital Signs (last 24 hours): Temp Pulse Resp BP Pulse Ox 98.1 F 66 19 117/76 99 11/14/18 16:12 11/14/18 16:12 11/14/18 16:12 11/14/18 16:12 11/14/18 16:12 - Medications Medications: Current Medications Acetaminophen (Tylenol 325mg Tab) 650 mg PO Q6 PRN PRN Reason: Pain, Mild (1-3) Last Admin: 10/29/18 04:01 Dose: 650 mg Acetaminophen (Tylenol 325mg Tab) 650 mg PO Q6 PRN PRN Reason: Fever >100.4 F Last Admin: 10/17/18 00:12 Dose: 650 mg Bisacodyl (Dulcolax) 5 mg PO DAILY PRN PRN Reason: Constipation Last Admin: 11/12/18 16:41 Dose: 5 mg Calcium/Vitamin D (Oyster Shell Calcium/Vitamin D 500 Mg-200 Iu) 1 tab PO DAILY [facility] Last Admin: 11/14/18 08:19 Dose: 1 tab Docusate Sodium (Colace) 100 mg PO BID [facility] Last Admin: 11/14/18 16:12 Dose: 100 mg Enoxaparin Sodium (Lovenox) 40 mg SC DAILY [facility]; Protocol Last Admin: 11/14/18 08:18 Dose: 40 mg Ergocalciferol (Drisdol 50,000 Intl Units Cap) 1 cap PO Q7D [facility] Last Admin: 11/08/18 10:01 Dose: 1 cap Ferrous Sulfate (Feosol) 325 mg PO BID [facility] Last Admin: 11/14/18 16:12 Dose: 325 mg Folic Acid (Folic Acid) 1 mg PO DAILY [facility] Last Admin: 11/14/18 08:18 Dose: 1 mg Metoprolol Tartrate (Lopressor) 12.5 mg PO Q12 [facility] Last Admin: 11/14/18 08:18 Dose: 12.5 mg Sennosides (Senokot Tab) 17.2 mg PO HS [facility] Last Admin: 11/13/18 21:08 Dose: 17.2 mg Tramadol HCl (Ultram) 50 mg PO Q4 PRN PRN Reason: Pain, moderate (4-7) Last Admin: 11/14/18 08:17 Dose: 50 mg - Labs Labs: 11/12/18 05:49 11/12/18 05:49 PT 11.9 Seconds (9.8-13.1) 10/09/18 23:33 INR 1.0 10/09/18 23:33 APTT 27.4 Seconds (25.6-37.1) 10/09/18 23:33 - Extremities Exam Additional comments: RLE: PODUS boot in place Dressings CDI Incision CDI sensation intact SP/DP/TN motor intact EHL/FHL, minimal ankle dorsiflexion pedal pulse intact calves soft NT b/l Assessment and Plan (1) Closed fracture of right tibial plateau Assessment & Plan: 5 weeks s/p ORIF right lateral tibial plateau and proximal tibial fracture, post-traumatic deep peroneal nerve palsy -PT/OT NWB RLE -strict foot PODUS on at all times -orthopedically stable for discharge -d/w Dr. Mcguire who agrees with above Status: Acute
--- NOTE | 2018-11-15 08:31 | CP.PCM.PN ---
Subjective - Date & Time of Evaluation Date of Evaluation: 11/15/18 Time of Evaluation: 08:28 - Subjective Subjective: Patient progressing well. No new complaints. Objective - Vital Signs/Intake and Output Vital Signs (last 24 hours): Temp Pulse Resp BP Pulse Ox 97.9 F 65 18 126/68 98 11/15/18 00:11 11/15/18 00:11 11/15/18 00:11 11/15/18 00:11 11/15/18 00:11 - Medications Medications: Current Medications Acetaminophen (Tylenol 325mg Tab) 650 mg PO Q6 PRN PRN Reason: Pain, Mild (1-3) Last Admin: 10/29/18 04:01 Dose: 650 mg Acetaminophen (Tylenol 325mg Tab) 650 mg PO Q6 PRN PRN Reason: Fever >100.4 F Last Admin: 10/17/18 00:12 Dose: 650 mg Bisacodyl (Dulcolax) 5 mg PO DAILY PRN PRN Reason: Constipation Last Admin: 11/12/18 16:41 Dose: 5 mg Calcium/Vitamin D (Oyster Shell Calcium/Vitamin D 500 Mg-200 Iu) 1 tab PO DAILY [facility] Last Admin: 11/14/18 08:19 Dose: 1 tab Docusate Sodium (Colace) 100 mg PO BID [facility] Last Admin: 11/14/18 16:12 Dose: 100 mg Enoxaparin Sodium (Lovenox) 40 mg SC DAILY [facility]; Protocol Last Admin: 11/14/18 08:18 Dose: 40 mg Ergocalciferol (Drisdol 50,000 Intl Units Cap) 1 cap PO Q7D [facility] Last Admin: 11/08/18 10:01 Dose: 1 cap Ferrous Sulfate (Feosol) 325 mg PO BID [facility] Last Admin: 11/14/18 16:12 Dose: 325 mg Folic Acid (Folic Acid) 1 mg PO DAILY [facility] Last Admin: 11/14/18 08:18 Dose: 1 mg Metoprolol Tartrate (Lopressor) 12.5 mg PO Q12 [facility] Last Admin: 11/14/18 21:34 Dose: 12.5 mg Sennosides (Senokot Tab) 17.2 mg PO HS [facility] Last Admin: 11/14/18 21:24 Dose: 17.2 mg Tramadol HCl (Ultram) 50 mg PO Q4 PRN PRN Reason: Pain, moderate (4-7) Last Admin: 11/14/18 08:17 Dose: 50 mg - Labs Labs: 11/12/18 05:49 11/12/18 05:49 PT 11.9 Seconds (9.8-13.1) 10/09/18 23:33 INR 1.0 10/09/18 23:33 APTT 27.4 Seconds (25.6-37.1) 10/09/18 23:33 - Extremities Exam Additional comments: RLE: incision healed. No erythema, improving knee ROM. Sensation intact, weak ankle DF/PF, +DP/PT pulses, +PF, toe flexion 5/5, calves soft NT neg homans Assessment and Plan (1) Closed fracture of right tibial plateau Assessment & Plan: 4 weeks s/p ORIF right tibial plateau resolving peroneal nerve palsy podus boot PWB ROM knee ortho stable d/w Dr. Mcguire, agrees with above Status: Acute (2) Closed fracture of fibula, proximal, right Status: Acute (3) Vitamin D deficiency Status: Acute
[2018-11-15] MEDS: Ergocalciferol 50,000 Intl Units Cap PO SCH (09:35)
[2018-11-15] MEDS: Enoxaparin 40 mg Syringe SC SCH (09:36)
[2018-11-15] MEDS: Calcium-Vit D 500 mg-200 Units Tab UD PO SCH (09:36)
[2018-11-15] MEDS: Bisacodyl 5mg EC Tab PO PRN (09:37)
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
[2018-11-16] MEDS: Enoxaparin 40 mg Syringe SC SCH (09:16)
[2018-11-16] MEDS: Calcium-Vit D 500 mg-200 Units Tab UD PO SCH (09:16)
--- NOTE | 2018-11-16 10:11 | CP.PCM.PN ---
Subjective - Date & Time of Evaluation Date of Evaluation: 11/16/18 Time of Evaluation: 10:10 - Subjective Subjective: Patient states he was able to walk around the whole floor yesterday. He is feeling stronger. Objective - Vital Signs/Intake and Output Vital Signs (last 24 hours): Temp Pulse Resp BP Pulse Ox 97.9 F 63 20 128/81 98 11/16/18 08:26 11/16/18 09:16 11/16/18 08:26 11/16/18 09:16 11/16/18 08:26 - Medications Medications: Current Medications Acetaminophen (Tylenol 325mg Tab) 650 mg PO Q6 PRN PRN Reason: Pain, Mild (1-3) Last Admin: 10/29/18 04:01 Dose: 650 mg Acetaminophen (Tylenol 325mg Tab) 650 mg PO Q6 PRN PRN Reason: Fever >100.4 F Last Admin: 10/17/18 00:12 Dose: 650 mg Bisacodyl (Dulcolax) 5 mg PO DAILY PRN PRN Reason: Constipation Last Admin: 11/15/18 09:37 Dose: 5 mg Calcium/Vitamin D (Oyster Shell Calcium/Vitamin D 500 Mg-200 Iu) 1 tab PO DAILY [facility] Last Admin: 11/16/18 09:16 Dose: 1 tab Docusate Sodium (Colace) 100 mg PO BID [facility] Last Admin: 11/16/18 09:15 Dose: 100 mg Enoxaparin Sodium (Lovenox) 40 mg SC DAILY [facility]; Protocol Last Admin: 11/16/18 09:16 Dose: 40 mg Ergocalciferol (Drisdol 50,000 Intl Units Cap) 1 cap PO Q7D [facility] Last Admin: 11/15/18 09:35 Dose: 1 cap Ferrous Sulfate (Feosol) 325 mg PO BID [facility] Last Admin: 11/16/18 09:15 Dose: 325 mg Folic Acid (Folic Acid) 1 mg PO DAILY [facility] Last Admin: 11/16/18 09:15 Dose: 1 mg Metoprolol Tartrate (Lopressor) 12.5 mg PO Q12 [facility] Last Admin: 11/16/18 09:16 Dose: 12.5 mg Sennosides (Senokot Tab) 17.2 mg PO HS [facility] Last Admin: 11/15/18 21:13 Dose: 17.2 mg Tramadol HCl (Ultram) 50 mg PO Q4 PRN PRN Reason: Pain, moderate (4-7) Last Admin: 11/16/18 09:20 Dose: 50 mg - Labs Labs: 11/12/18 05:49 11/12/18 05:49 PT 11.9 Seconds (9.8-13.1) 10/09/18 23:33 INR 1.0 10/09/18 23:33 APTT 27.4 Seconds (25.6-37.1) 10/09/18 23:33 - Extremities Exam Additional comments: RLE: incision healed. No erythema, improving knee ROM. Sensation intact, weak ankle DF/PF, +DP/PT pulses, +PF, toe flexion 5/5, calves soft NT neg homans, ROM knee improving minus 10 Assessment and Plan (1) Closed fracture of right tibial plateau Assessment & Plan: 4 weeks s/p ORIF right tibial plateau resolving peroneal nerve palsy podus boot PWB ROM knee ortho stable d/w Dr. Mcguire, agrees with above Status: Acute (2) Closed fracture of fibula, proximal, right Status: Acute (3) Vitamin D deficiency Status: Acute
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
[2018-11-17] MEDS: Calcium-Vit D 500 mg-200 Units Tab UD PO SCH (09:09)
[2018-11-17] MEDS: Enoxaparin 40 mg Syringe SC SCH (09:10)
[2018-11-17] MEDS: Bisacodyl 5mg EC Tab PO PRN (09:12)
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
[2018-11-18] MEDS: Enoxaparin 40 mg Syringe SC SCH (09:08)
[2018-11-18] MEDS: Bisacodyl 5mg EC Tab PO PRN (09:10)
[2018-11-18] MEDS: Calcium-Vit D 500 mg-200 Units Tab UD PO SCH (09:11)
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
[2018-11-19] MEDS: Calcium-Vit D 500 mg-200 Units Tab UD PO SCH (09:15)
[2018-11-19] MEDS: Enoxaparin 40 mg Syringe SC SCH (09:15)
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
--- NOTE | 2018-11-20 08:56 | CP.PCM.PN ---
Subjective - Date & Time of Evaluation Date of Evaluation: 11/20/18 Time of Evaluation: 07:30 - Subjective Subjective: Patient seen and examined at bedside. C/o of mild knee and ankle pain overnight, controlled during day. No other complaints. Objective - Vital Signs/Intake and Output Vital Signs (last 24 hours): Temp Pulse Resp BP Pulse Ox 97.8 F 63 21 114/61 98 11/20/18 08:09 11/20/18 08:09 11/20/18 08:09 11/20/18 08:09 11/20/18 08:09 - Medications Medications: Current Medications Acetaminophen (Tylenol 325mg Tab) 650 mg PO Q6 PRN PRN Reason: Pain, Mild (1-3) Last Admin: 10/29/18 04:01 Dose: 650 mg Acetaminophen (Tylenol 325mg Tab) 650 mg PO Q6 PRN PRN Reason: Fever >100.4 F Last Admin: 10/17/18 00:12 Dose: 650 mg Bisacodyl (Dulcolax) 5 mg PO DAILY PRN PRN Reason: Constipation Last Admin: 11/18/18 09:10 Dose: 5 mg Calcium/Vitamin D (Oyster Shell Calcium/Vitamin D 500 Mg-200 Iu) 1 tab PO DAILY [facility] Last Admin: 11/19/18 09:15 Dose: 1 tab Docusate Sodium (Colace) 100 mg PO BID [facility] Last Admin: 11/19/18 16:25 Dose: 100 mg Enoxaparin Sodium (Lovenox) 40 mg SC DAILY [facility]; Protocol Last Admin: 11/19/18 09:15 Dose: 40 mg Ergocalciferol (Drisdol 50,000 Intl Units Cap) 1 cap PO Q7D [facility] Last Admin: 11/15/18 09:35 Dose: 1 cap Ferrous Sulfate (Feosol) 325 mg PO BID [facility] Last Admin: 11/19/18 16:25 Dose: 325 mg Folic Acid (Folic Acid) 1 mg PO DAILY [facility] Last Admin: 11/19/18 09:14 Dose: 1 mg Metoprolol Tartrate (Lopressor) 12.5 mg PO Q12 [facility] Last Admin: 11/19/18 21:03 Dose: 12.5 mg Sennosides (Senokot Tab) 17.2 mg PO HS [facility] Last Admin: 11/19/18 21:02 Dose: 17.2 mg Tramadol HCl (Ultram) 50 mg PO Q4 PRN PRN Reason: Pain, moderate (4-7) Last Admin: 11/19/18 21:08 Dose: 50 mg - Labs Labs: 11/12/18 05:49 11/12/18 05:49 PT 11.9 Seconds (9.8-13.1) 10/09/18 23:33 INR 1.0 10/09/18 23:33 APTT 27.4 Seconds (25.6-37.1) 10/09/18 23:33 - Extremities Exam Additional comments: RLE: PODUS boot in place Dressings CDI sensation intact SP/DP/TN motor intact EHL/FHL, improving minimal ankle dorsiflexion pedal pulse intact calves soft NT b/l Assessment and Plan (1) Closed fracture of right tibial plateau Assessment & Plan: 6 weeks s/p ORIF right lateral tibial plateau and proximal tibial fracture, post-traumatic deep peroneal nerve palsy -PT/OT PWB 20% RLE -strict foot PODUS/AFO brace on at all times -orthopedically stable for discharge, unsafe d/c to community at this time -d/w Dr. Mcguire who agrees with above Status: Acute
[2018-11-20] MEDS: Calcium-Vit D 500 mg-200 Units Tab UD PO SCH (09:41)
[2018-11-20] MEDS: Enoxaparin 40 mg Syringe SC SCH (09:42)
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
[2018-11-20] MEDS: Bisacodyl 5mg EC Tab PO PRN (21:11)
[2018-11-21] MEDS: Calcium-Vit D 500 mg-200 Units Tab UD PO SCH (09:04)
[2018-11-21] MEDS: Enoxaparin 40 mg Syringe SC SCH (09:04)
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
--- NOTE | 2018-11-21 12:16 | CP.PCM.PN ---
Subjective - Date & Time of Evaluation Date of Evaluation: 11/21/18 Time of Evaluation: 12:15 - Subjective Subjective: Patient states he is doing very well with PT. He walked around the floor and even walked outside. He has a little pain in his knee occasionally but not bad. He Denies CP/SOB/dizziness. Objective - Vital Signs/Intake and Output Vital Signs (last 24 hours): Temp Pulse Resp BP Pulse Ox 97.5 F L 65 20 104/65 98 11/21/18 09:00 11/21/18 09:03 11/21/18 09:00 11/21/18 09:03 11/21/18 09:00 - Medications Medications: Current Medications Acetaminophen (Tylenol 325mg Tab) 650 mg PO Q6 PRN PRN Reason: Pain, Mild (1-3) Last Admin: 10/29/18 04:01 Dose: 650 mg Acetaminophen (Tylenol 325mg Tab) 650 mg PO Q6 PRN PRN Reason: Fever >100.4 F Last Admin: 10/17/18 00:12 Dose: 650 mg Bisacodyl (Dulcolax) 5 mg PO DAILY PRN PRN Reason: Constipation Last Admin: 11/20/18 21:11 Dose: 5 mg Calcium/Vitamin D (Oyster Shell Calcium/Vitamin D 500 Mg-200 Iu) 1 tab PO DAILY [facility] Last Admin: 11/21/18 09:04 Dose: 1 tab Docusate Sodium (Colace) 100 mg PO BID [facility] Last Admin: 11/21/18 09:03 Dose: 100 mg Enoxaparin Sodium (Lovenox) 40 mg SC DAILY [facility]; Protocol Last Admin: 11/21/18 09:04 Dose: 40 mg Ergocalciferol (Drisdol 50,000 Intl Units Cap) 1 cap PO Q7D [facility] Last Admin: 11/15/18 09:35 Dose: 1 cap Ferrous Sulfate (Feosol) 325 mg PO BID [facility] Last Admin: 11/21/18 09:03 Dose: 325 mg Folic Acid (Folic Acid) 1 mg PO DAILY [facility] Last Admin: 11/21/18 09:03 Dose: 1 mg Metoprolol Tartrate (Lopressor) 12.5 mg PO Q12 [facility] Last Admin: 11/21/18 09:03 Dose: 12.5 mg Sennosides (Senokot Tab) 17.2 mg PO HS [facility] Last Admin: 11/20/18 21:10 Dose: 17.2 mg Tramadol HCl (Ultram) 50 mg PO Q4 PRN PRN Reason: Pain, moderate (4-7) Last Admin: 11/20/18 21:15 Dose: 50 mg - Labs Labs: 11/12/18 05:49 11/12/18 05:49 PT 11.9 Seconds (9.8-13.1) 10/09/18 23:33 INR 1.0 10/09/18 23:33 APTT 27.4 Seconds (25.6-37.1) 10/09/18 23:33 - Extremities Exam Additional comments: RLE: incision healed. No erythema, improving knee ROM. Sensation intact, weak ankle DF/PF, +DP/PT pulses, +PF, toe flexion 5/5, calves soft NT neg homans, ROM knee improving minus 10 Assessment and Plan (1) Closed fracture of right tibial plateau Assessment & Plan: 4 weeks s/p ORIF right tibial plateau resolving peroneal nerve palsy podus boot PWB ROM knee ortho stable d/w Dr. Mcguire, agrees with above Status: Acute (2) Closed fracture of fibula, proximal, right Status: Acute (3) Vitamin D deficiency Status: Acute
[2018-11-21] MEDS: Bisacodyl 5mg EC Tab PO PRN (16:26)
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
[2018-11-22] MEDS: Ergocalciferol 50,000 Intl Units Cap PO SCH (08:38)
[2018-11-22] MEDS: Calcium-Vit D 500 mg-200 Units Tab UD PO SCH (08:39)
[2018-11-22] MEDS: Bisacodyl 5mg EC Tab PO PRN (08:40)
--- NOTE | 2018-11-22 11:29 | RAD ---
Date of service: 11/22/2018 PROCEDURE: Right Knee Radiographs. HISTORY: fracture follow up right tibial plateau COMPARISON: 11/12/2018. TECHNIQUE: 2 views obtained. FINDINGS: BONES: Stable findings with respect to tibial plateau fracture. Stability with respect to proximal fibular fracture fragments. JOINTS: Normal. No osteoarthritis. JOINT EFFUSION: None. OTHER FINDINGS: None. IMPRESSION: No significant interval change compared to the prior examination(s).
[2018-11-22] MEDS: Enoxaparin 40 mg Syringe SC SCH (12:28)
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
[2018-11-23] MEDS: Bisacodyl 5mg EC Tab PO PRN (08:58)
[2018-11-23] MEDS: Enoxaparin 40 mg Syringe SC SCH (08:58)
[2018-11-23] MEDS: Calcium-Vit D 500 mg-200 Units Tab UD PO SCH (08:58)
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
[2018-11-24 08:46] VITALS: RESP 20; O2SAT 98
[2018-11-24] MEDS: Enoxaparin 40 mg Syringe SC SCH (08:50)
[2018-11-24] MEDS: Calcium-Vit D 500 mg-200 Units Tab UD PO SCH (08:52)
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
[2018-11-24 15:48] VITALS: BP 129/78; PULSE 76; TEMP 97.6
--- NOTE | 2018-11-24 17:26 | CP.PCM.PN ---
Subjective - Date & Time of Evaluation Date of Evaluation: 11/24/18 Time of Evaluation: 16:00 - Subjective Subjective: S- p;t comfortable/orthopedically styable- footdrop impaired Objective - Vital Signs/Intake and Output Vital Signs (last 24 hours): Temp Pulse Resp BP Pulse Ox 97.6 F 76 20 129/78 98 11/24/18 15:47 11/24/18 15:47 11/24/18 15:47 11/24/18 15:47 11/24/18 15:47 - Labs Labs: 11/12/18 05:49 11/12/18 05:49 PT 11.9 Seconds (9.8-13.1) 10/09/18 23:33 INR 1.0 10/09/18 23:33 APTT 27.4 Seconds (25.6-37.1) 10/09/18 23:33 - Additional Findings Additional findings: Objective systemic- wnl Musculoskeletal stance/gait- defrred AFO intcat- pt has had marked improvementin N/V sensation intact EHL and ankle dorsiflexors improbved Assessment and Plan - Assessment and Plan (Free Text) Assessment: A- last Xray reveal essentially healed tibial plateau fx \ post trauma peroneal palsy resolving P- orthopedically stable for d/c weight bearing to toleran ce with walker
== END 2018-11-24 16:50 | disposition home or self-care (01) | DRG 488 ==
LOC: H.ER 20:49 → H.ERHOLD 23:19 → H.MEDSURG1 10-10 02:45
PROVIDERS: ADMIT Internal Medicine; ATTEND Internal Medicine
PROC: 0S9C3ZX Drainage of Right Knee Joint, Percutaneous Approach, Diagnostic (ICD-10-PCS; 2018-10-10)
PROC: 0QSGXZZ Reposition Right Tibia, External Approach (ICD-10-PCS; 2018-10-10)
PROC: 0SBC4ZZ Excision of Right Knee Joint, Percutaneous Endoscopic Approach (ICD-10-PCS; 2018-10-15)
PROC: 0SBC4ZZ Excision of Right Knee Joint, Percutaneous Endoscopic Approach (ICD-10-PCS; 2018-10-15)
PROC: 0QSG04Z Reposition Right Tibia with Internal Fixation Device, Open Approach (ICD-10-PCS; principal; 2018-10-15 10:45)
PROC: 0SBC0ZZ Excision of Right Knee Joint, Open Approach (ICD-10-PCS; 2018-10-15 10:45)
PROC: 0QUG0KZ Supplement Right Tibia with Nonautologous Tissue Substitute, Open Approach (ICD-10-PCS; 2018-10-15 10:45)
DX: S82.141A Displaced bicondylar fracture of right tibia, initial encounter for closed fracture (principal); D62 Acute posthemorrhagic anemia; J98.11 Atelectasis; M25.061 Hemarthrosis, right knee; V03.10XA Pedestrian on foot injured in collision with car, pick-up truck or van in traffic accident, initial encounter; Y93.9 Activity, unspecified; Y92.410 Unspecified street and highway as the place of occurrence of the external cause; D69.6 Thrombocytopenia, unspecified; E53.8 Deficiency of other specified B group vitamins; E55.9 Vitamin D deficiency, unspecified; F17.200 Nicotine dependence, unspecified, uncomplicated; G57.31 Lesion of lateral popliteal nerve, right lower limb; I10 Essential (primary) hypertension; K59.00 Constipation, unspecified; M21.371 Foot drop, right foot; M65.9 Synovitis and tenosynovitis, unspecified; R50.82 Postprocedural fever; S83.241A Other tear of medial meniscus, current injury, right knee, initial encounter; S83.281A Other tear of lateral meniscus, current injury, right knee, initial encounter; Z59.0 Homelessness; Z79.899 Other long term (current) drug therapy; M19.90 Unspecified osteoarthritis, unspecified site; Y83.9 Surgical procedure, unspecified as the cause of abnormal reaction of the patient, or of later complication, without mention of misadventure at the time of the procedure; Y92.239 Unspecified place in hospital as the place of occurrence of the external cause; S83.289A Other tear of lateral meniscus, current injury, unspecified knee, initial encounter; S83.249A Other tear of medial meniscus, current injury, unspecified knee, initial encounter